=== PATIENT | female | born 1950 | race African-American/Black ===

== ENCOUNTER 2017-07-09 16:42 | Inpatient (IN) | payer MEDICARE, MEDICAID ==
[~2017-07-09] VITALS: Ht 162.6 cm; Wt 46.3 kg
[~2017-07-09 16:42] MED LIST: ALBU2.5V13 NEB; AMLO10TA80 PO; BECL8.7A6 INH; CHOL400T15 MT; DOCU-150 PO; FERR-43 PO; GABA-531 PO; IOHEXOL-350 100 ML BOTTLE ONE; OMEP20TA2 PO; SODIUM CHLORIDE 0.9% 10ML VIAL ONE; TRAM50TA3 PO; TURDOZA INH
[2017-07-09 19:31] LABS: BASOPHILS % 1.3 % (0.0-2.0); EOSINOPHILS % 3.2 % (0.0-5.0); HEMATOCRIT. 38.4 % (36.0-48.0); LYMPHOCYTES % 25.8 % (20.0-50.0); MEAN CORPUSCULAR HEMOGLOBIN 29.9 pg (28.0-32.0); MEAN CORPUSCULAR VOLUME 88.3 fL (81.0-99.0); MEAN PLATELET VOLUME 9.7 fl (7.4-10.4); MONOCYTES % 11.5 % (2.0-8.0); NEUTROPHILS % 58.2 % (40.0-76.0); PLATELET 126 x1000/uL (130-400); RED BLOOD CELL COUNT 4.35 mill/uL (4.2-5.4); RED CELL DISTRIBUTION WIDTH 14.1 % (11.6-14.6)
[2017-07-09 19:35] LABS: CHLORIDE 103 mEq/L (98-107)
[2017-07-09 19:38] LABS: INR 1.3; PARTIAL THROMBOPLASTIN TIME 29.6 sec (23.4-31.0); PROTHROMBIN TIME 13.8 sec (9.4-11.6)
[2017-07-09 19:41] LABS: CARBON DIOXIDE 33 mEq/L (21-32)
[2017-07-09 20:15] LABS: CLARITY URINE CLEAR (CLEAR); COLOR URINE YELLOW (YELLOW); GLUCOSE URINE NEGATIVE (NEGATIVE); KETONES URINE NEGATIVE (NEGATIVE); LEUKOCYTE ESTERASE URINE NEGATIVE (NEGATIVE); NITRITE URINE NEGATIVE (NEGATIVE); OCCULT BLOOD URINE 1+ (NEGATIVE); PH URINE 7.5 (4.5-8.0); PROTEIN URINE NEGATIVE (NEGATIVE); SPECIFIC GRAVITY URINE 1.008 (1.005-1.030); UROBILINOGEN URINE 0.2 E.U./dL (0.2-1.0)
[2017-07-09 20:28] LABS: *AMPHETAMINES SCREEN URINE NEGATIVE (NEGATIVE); *BARBITURATES SCREEN URINE NEGATIVE (NEGATIVE); *BENZODIAZEPINES SCREEN URINE NEGATIVE (NEGATIVE); *COCAINE SCREEN URINE NEGATIVE (NEGATIVE); CANNABINOID URINE SCREEN NEGATIVE (NEGATIVE); METHADONE URINE SCREEN NEGATIVE (NEGATIVE); OPIATES URINE SCREEN NEGATIVE (NEGATIVE); PHENCYCLIDINE URINE SCREEN NEGATIVE (NEGATIVE)
[2017-07-09] MEDS ORDERED: KETOROLAC 15MG/ML VIAL IV ONE (22:45)
[2017-07-09] MEDS: SODIUM CHLORIDE 0.9% 1,000 ML IV SCH (23:43)
[2017-07-10] MEDS ORDERED: GABAPENTIN 300MG CAPSULE PO SCH (01:30)
[2017-07-10] MEDS: SODIUM CHLORIDE 0.9% 1,000 ML IV SCH (02:23)
[2017-07-10] MEDS ORDERED: CLONIDINE 0.1MG TABLET PO PRN (04:30)
[2017-07-10] MEDS ORDERED: ONDANSETRON HCL 4MG/2ML VIAL IV PRN (04:30)
[2017-07-10 05:10] VITALS: BP 164/99
[2017-07-10] MEDS: MORPHINE SULFATE 4 MG/ML CPJ (NOT FOR IM USE) IV PRN ×4 (06:30→21:48)
[2017-07-10] MEDS ORDERED: ALBUTEROL (0.083%) 2.5MG/3ML NEB INH PRN (07:15)
[2017-07-10] MEDS: IPRATROPIUM/ALBUTEROL 0.5-3(2.5)MG/3ML NEB INH SCH ×3 (07:57→20:58)
[2017-07-10 08:23] VITALS: BP 143/84
[2017-07-10] MEDS ORDERED: FERROUS SULFATE 325MG TABLET PO SCH (09:00)
[2017-07-10] MEDS ORDERED: CHOLECALCIFEROL MT SCH (09:00)
[2017-07-10] MEDS: GABAPENTIN 300MG CAPSULE PO SCH ×3 (09:12→18:32)
[2017-07-10] MEDS: DOCUSATE SODIUM 100MG CAPSULE PO SCH (09:12)
[2017-07-10] MEDS: CHOLECALCIFEROL (D3) 1000 UNIT TABLET PO SCH (09:13)
[2017-07-10] MEDS: AMLODIPINE 10MG TABLET PO SCH (09:14)
[2017-07-10] MEDS ORDERED: INFLUENZA VIRUS VACCINE 0.5ML SYR IM ONE (09:30)
[2017-07-10] MEDS ORDERED: PNEUMOCOCCAL 23-VAL P-SAC VAC 0.5 ML IM ONE (09:30)
[2017-07-10] MEDS: FERROUS SULFATE 325MG TABLET PO SCH ×3 (10:28→18:32)
[2017-07-10] MEDS: ENOXAPARIN 40MG/0.4ML SYR SUBCUT SCH (10:36)
[2017-07-10] MEDS ORDERED: POTASSIUM CHLORIDE 20MEQ TABLET SR PO SCH (10:45)
[2017-07-10 10:59] LABS: LDL CHOLESTEROL 104 mg/dL (5-100)
[2017-07-10 11:08] LABS: HDL CHOLESTEROL 92 mg/dL (40-59); TROPONIN I < 0.02 ng/mL (0.00-0.04)
[2017-07-10 11:57] VITALS: BP 143/82
[2017-07-10 14:48] LABS: CREATINE KINASE 91 IU/L (26-192); CREATINE KINASE MB FRACTION 4.5 ng/mL (0.5-3.6); TROPONIN I < 0.02 ng/mL (0.00-0.04)
[2017-07-10 20:40] VITALS: BP 118/83
[2017-07-11] VITALS (7 sets, daily range): BP systolic 118–138; BP diastolic 68–89
[2017-07-11] MEDS: IPRATROPIUM/ALBUTEROL 0.5-3(2.5)MG/3ML NEB INH SCH ×4 (02:27→20:37)
[2017-07-11 06:38] LABS: HEMATOCRIT. 37.3 % (36.0-48.0); HEMOGLOBIN. 12.5 g/dL (12.0-16.0); MEAN CORPUSCULAR HEMOGLOBIN 29.8 pg (28.0-32.0); MEAN CORPUSCULAR VOLUME 89.2 fL (81.0-99.0); MEAN PLATELET VOLUME 10.9 fl (7.4-10.4); PLATELET 123 x1000/uL (130-400); RED BLOOD CELL COUNT 4.18 mill/uL (4.2-5.4)
[2017-07-11 07:25] LABS: CARBON DIOXIDE 30 mEq/L (21-32); CHLORIDE 103 mEq/L (98-107); CREATINE KINASE 75 IU/L (26-192)
[2017-07-11 07:30] LABS: CREATINE KINASE MB FRACTION 2.9 ng/mL (0.5-3.6)
[2017-07-11] MEDS: MORPHINE SULFATE 4 MG/ML CPJ (NOT FOR IM USE) IV PRN ×3 (08:13→20:07)
[2017-07-11] MEDS: GABAPENTIN 300MG CAPSULE PO SCH ×3 (08:33→17:42)
[2017-07-11] MEDS: FERROUS SULFATE 325MG TABLET PO SCH ×3 (08:33→17:42)
[2017-07-11] MEDS: CHOLECALCIFEROL (D3) 1000 UNIT TABLET PO SCH (08:34)
[2017-07-11] MEDS: AMLODIPINE 10MG TABLET PO SCH (08:34)
[2017-07-11] MEDS: DOCUSATE SODIUM 100MG CAPSULE PO SCH (08:36)
[2017-07-11] MEDS: ENOXAPARIN 40MG/0.4ML SYR SUBCUT SCH (08:40)
[2017-07-11] MEDS: ACETAMINOPHEN 325MG TABLET PO PRN ×2 (08:44→15:25)
[2017-07-11] MEDS ORDERED: REGADENOSON 0.4 MG/5 ML IV ONE ×2 (11:15→12:53)
[2017-07-11 13:24] LABS: PLATELET ESTIMATE SLIGHTLY DECREASED
[2017-07-12] VITALS: BP 125/74
[2017-07-12] MEDS: MORPHINE SULFATE 4 MG/ML CPJ (NOT FOR IM USE) IV PRN ×2 (03:38→10:00)
[2017-07-12 04:00] VITALS: BP 123/76
[2017-07-12 07:49] VITALS: BP 132/84
[2017-07-12 07:56] LABS: HEMATOCRIT. 37.2 % (36.0-48.0); HEMOGLOBIN. 12.3 g/dL (12.0-16.0); MEAN CORPUSCULAR HEMOGLOBIN 29.5 pg (28.0-32.0); MEAN CORPUSCULAR VOLUME 89.1 fL (81.0-99.0); MEAN PLATELET VOLUME 10.5 fl (7.4-10.4); PLATELET 107 x1000/uL (130-400); RED BLOOD CELL COUNT 4.18 mill/uL (4.2-5.4); RED CELL DISTRIBUTION WIDTH 14.1 % (11.6-14.6)
[2017-07-12 07:59] LABS: CARBON DIOXIDE 34 mEq/L (21-32); CHLORIDE 102 mEq/L (98-107)
[2017-07-12] MEDS: DOCUSATE SODIUM 100MG CAPSULE PO SCH (09:00)
[2017-07-12] MEDS: IPRATROPIUM/ALBUTEROL 0.5-3(2.5)MG/3ML NEB INH SCH (09:09)
[2017-07-12] MEDS: GABAPENTIN 300MG CAPSULE PO SCH ×2 (09:53→13:41)
[2017-07-12] MEDS: FERROUS SULFATE 325MG TABLET PO SCH ×2 (09:53→13:41)
[2017-07-12] MEDS: CHOLECALCIFEROL (D3) 1000 UNIT TABLET PO SCH (09:53)
[2017-07-12] MEDS: AMLODIPINE 10MG TABLET PO SCH (09:58)
[2017-07-12] MEDS: ENOXAPARIN 40MG/0.4ML SYR SUBCUT SCH (09:58)
[2017-07-12 12:00] VITALS: BP 123/91
[2017-07-12 13:03] VITALS: BP 126/80
[2017-07-12 13:32] LABS: PLATELET ESTIMATE SLIGHTLY DECREASED
== END 2017-07-12 15:40 | disposition home or self-care (01) | DRG 140 ==
LOC: ER 19:47 → 6WST 23:17 → ENRESERV 07-10 02:30
PROVIDERS: ADMIT Internal Medicine; ATTEND Internal Medicine
DX: J44.1 Chronic obstructive pulmonary disease with (acute) exacerbation (principal); J96.20 Acute and chronic respiratory failure, unspecified whether with hypoxia or hypercapnia; D69.6 Thrombocytopenia, unspecified; K74.60 Unspecified cirrhosis of liver; K25.9 Gastric ulcer, unspecified as acute or chronic, without hemorrhage or perforation; M94.0 Chondrocostal junction syndrome [Tietze]; R07.1 Chest pain on breathing; Z99.81 Dependence on supplemental oxygen; E87.6 Hypokalemia; I10 Essential (primary) hypertension; Z79.899 Other long term (current) drug therapy; Z83.3 Family history of diabetes mellitus; Z87.11 Personal history of peptic ulcer disease; Z87.891 Personal history of nicotine dependence; Z98.51 Tubal ligation status; K72.90 Hepatic failure, unspecified without coma; Z82.49 Family history of ischemic heart disease and other diseases of the circulatory system; B19.20 Unspecified viral hepatitis C without hepatic coma
CPT/HCPCS: 36415; 71010; 71275; 78452; 80048; 80053; 80061; 80305; 81001; 82550; 82553; 83880; 84443; 84484; 85025; 85610; 85730; 87040; 87086; 90686; 90732; 93005; 93017; 93306; 93970; 94640; 96361; 96374; 97116; 97162; 99285; A4216; A9500; J1650; J1885; J2270; J2785; J7030; J7611; J7620; Q9967

== ENCOUNTER 2017-08-03 18:46 | Emergency (ER) | payer MEDICARE, MEDICAID ==
[~2017-08-03] VITALS: Ht 162.6 cm; Wt 47.0 kg
[~2017-08-03 18:46] MED LIST changes: -IOHEXOL-350 100 ML BOTTLE ONE; -SODIUM CHLORIDE 0.9% 10ML VIAL ONE
[2017-08-03] MEDS ORDERED: TRAMADOL 50MG TABLET PO ONE (19:45)
[2017-08-03 21:15] VITALS: BP 125/71
== END 2017-08-03 21:15 | disposition home or self-care (01) ==
LOC: ER 20:45
DX: M25.532 Pain in left wrist (principal); R07.9 Chest pain, unspecified; J44.9 Chronic obstructive pulmonary disease, unspecified; I10 Essential (primary) hypertension
CPT/HCPCS: 29125; 73110; 99284

== ENCOUNTER → 2017-09-13 | Outpatient (CLI) | payer MEDICARE, MEDICAID | END | disposition home or self-care (01) | LOC: US 11:15 | PROVIDERS: ATTEND Internal Medicine Gastroenterology | DX: K82.8 Other specified diseases of gallbladder (principal); N28.1 Cyst of kidney, acquired; B18.2 Chronic viral hepatitis C | CPT/HCPCS: 76700 ==

== ENCOUNTER → 2018-03-15 | Outpatient (CLI) | payer MEDICARE, MEDICAID | END | disposition home or self-care (01) | LOC: US 10:25 | PROVIDERS: ATTEND Internal Medicine Gastroenterology | DX: N28.1 Cyst of kidney, acquired (principal); J47.9 Bronchiectasis, uncomplicated; Z87.891 Personal history of nicotine dependence | CPT/HCPCS: 71250; 76700 ==

== ENCOUNTER → 2018-11-15 | Outpatient (CLI) | payer MEDICARE, MEDICAID ==
[~2018-11-15] MED LIST changes: +ACYC400T5 PO; +ASPI-1159 PO; +BARIUM SULFATE 450ML ORAL SUSP ONE; +BETH25TA PO; +IOHEXOL-300 100 ML BOTTLE ONE; +IOHEXOL-350 100 ML BOTTLE ONE; +P20 MT; +PANT40TA4 PO; +TERA2CAP4 PO
== END | disposition home or self-care (01) ==
LOC: CT 10:15
PROVIDERS: ATTEND Internal Medicine Gastroenterology
DX: J43.9 Emphysema, unspecified (principal); K74.60 Unspecified cirrhosis of liver; B18.2 Chronic viral hepatitis C; N20.0 Calculus of kidney
CPT/HCPCS: 74177; Q9967

== ENCOUNTER 2018-12-23 19:58 | Emergency (ER) | payer MEDICARE, MEDICAID ==
[~2018-12-23] VITALS: Ht 162.6 cm; Wt 54.0 kg
[~2018-12-23 19:58] MED LIST changes: -ACYC400T5 PO; -ASPI-1159 PO; -BARIUM SULFATE 450ML ORAL SUSP ONE; -BETH25TA PO; -IOHEXOL-300 100 ML BOTTLE ONE; -IOHEXOL-350 100 ML BOTTLE ONE; -P20 MT; -PANT40TA4 PO; -TERA2CAP4 PO
[2018-12-23] MEDS ORDERED: HYDROCODONE/ACETAMINOPHEN 5/325MG TABLET PO STA (21:15)
[2018-12-23] MEDS ORDERED: ACYCLOVIR 400 MG TABLET PO ONE (21:15)
[2018-12-23 21:44] LABS: HEMATOCRIT. 32.5 % (36.0-48.0); HEMOGLOBIN. 10.5 g/dL (12.0-16.0); MEAN CORPUSCULAR HEMOGLOBIN 28.7 pg (28.0-32.0); MEAN CORPUSCULAR VOLUME 88.7 fL (81.0-99.0); PLATELET 145 x1000/uL (130-400); RED BLOOD CELL COUNT 3.66 mill/uL (4.2-5.4)
[2018-12-23 21:53] LABS: CHLORIDE 95 mEq/L (98-107)
[2018-12-23] MEDS ORDERED: ONDANSETRON HCL 4MG/2ML INJ ONE (21:59)
[2018-12-23 22:03] LABS: PLATELET ESTIMATE NORMAL
[2018-12-23] MEDS ORDERED: MORPHINE SULFATE 4 MG/ML CPJ (NOT FOR IM USE) IV ONE (23:00)
[2018-12-24] MEDS ORDERED: GABAPENTIN 300MG CAPSULE PO ONE
[2018-12-24] MEDS ORDERED: IOHEXOL-300 100 ML BOTTLE ONE (00:08)
[2018-12-24 02:15] VITALS: BP 134/79
== END 2018-12-24 02:30 | disposition home or self-care (01) ==
LOC: ER 20:21
DX: B02.9 Zoster without complications (principal); R07.89 Other chest pain; J44.9 Chronic obstructive pulmonary disease, unspecified; Z79.899 Other long term (current) drug therapy; Z87.891 Personal history of nicotine dependence
CPT/HCPCS: 36415; 71045; 71260; 80053; 85025; 93005; 96374; 99284; J2270; J2405; Q9967

== ENCOUNTER 2018-12-27 13:33 | Inpatient (IN) | payer MEDICARE, MEDICAID ==
[~2018-12-27] VITALS: Ht 157.5 cm; Wt 49.9 kg
[2018-12-27] MEDS ORDERED: KETOROLAC 30MG/ML VIAL IV STA (14:25)
[2018-12-27] MEDS ORDERED: MORPHINE SULFATE 4 MG/ML CPJ (NOT FOR IM USE) IV STA (14:25)
[2018-12-27] MEDS ORDERED: ONDANSETRON HCL 4MG/2ML INJ IV STA (14:25)
[2018-12-27] MEDS ORDERED: VANCOMYCIN 1 G PREMIX 200 ML IV ONE (14:30)
[2018-12-27] MEDS ORDERED: PIPERACILLIN/TAZ 3.375G PREMIX 50 ML IV ONE (14:30)
[2018-12-27] MEDS ORDERED: SODIUM CHLORIDE 0.9% 1000ML BAG (SEPSIS BOLUS) IV ONE (14:30)
[2018-12-27] MEDS ORDERED: ACYCLOVIR INJ 500 MG in DEXT 5% WATER 100 ML IV SCH (14:30)
[2018-12-27] MEDS ORDERED: HYDROCORTISONE SOD SUCCINATE 100 MG/2 ML VIAL IV ONE (14:30)
[2018-12-27 14:47] LABS: HEMATOCRIT. 32.5 % (36.0-48.0); HEMOGLOBIN. 10.5 g/dL (12.0-16.0); MEAN CORPUSCULAR HEMOGLOBIN 28.4 pg (28.0-32.0); MEAN CORPUSCULAR VOLUME 87.7 fL (81.0-99.0); MEAN PLATELET VOLUME 10.2 fl (7.4-10.4); PLATELET 147 x1000/uL (130-400); RED CELL DISTRIBUTION WIDTH 14.5 % (11.6-14.6)
[2018-12-27 14:50] LABS: INR 1.3; PROTHROMBIN TIME 12.8 sec (9.1-11.1)
[2018-12-27 14:53] LABS: CHLORIDE 88 mEq/L (98-107)
[2018-12-27 14:58] LABS: ETHANOL BLOOD < 10 mg/dL
[2018-12-27 16:10] LABS: PLATELET ESTIMATE NORMAL
[2018-12-27] MEDS ORDERED: NOREPINEPHRINE 4 MG in DEXT 5% WATER 246 ML IV ONE (17:15)
[2018-12-27] MEDS ORDERED: MORPHINE SULFATE 4 MG/ML CPJ (NOT FOR IM USE) IV ONE (17:15)
[2018-12-27] MEDS ORDERED: ONDANSETRON HCL 4MG/2ML INJ IV ONE (17:15)
[2018-12-27] MEDS ORDERED: NOREPINEPHRINE IV ONE (17:27)
[2018-12-27] MEDS ORDERED: NOREPINEPHRINE 4MG/250ML PMX 250 ML IV ONE (17:27)
[2018-12-27] MEDS ORDERED: NOREPINEPHRINE 4MG/250ML PMX 250 ML IV SCH ×4 (17:30)
[2018-12-27 19:32] LABS: CLARITY URINE TURBID (CLEAR); COLOR URINE DARK YELLOW (YELLOW); KETONES URINE TRACE (NEGATIVE); LEUKOCYTE ESTERASE URINE 2+ (NEGATIVE); NITRITE URINE POSITIVE (NEGATIVE); OCCULT BLOOD URINE 3+ (NEGATIVE); PROTEIN URINE 3+ (NEGATIVE); SPECIFIC GRAVITY URINE 1.037 (1.005-1.030)
[2018-12-27] MEDS ORDERED: GUAIFENESIN 200MG/10ML SUGAR FREE UDC PO PRN (19:45)
[2018-12-27] MEDS ORDERED: MORPHINE SULFATE 4 MG/ML CPJ (NOT FOR IM USE) IV PRN (19:45)
[2018-12-27] MEDS ORDERED: DOCUSATE SODIUM 100MG CAPSULE PO PRN (19:45)
[2018-12-27] MEDS ORDERED: CLONIDINE 0.1MG TABLET PO PRN (19:45)
[2018-12-27] MEDS ORDERED: LORAZEPAM 2MG/ML CPJ IV PRN (19:45)
[2018-12-27] MEDS ORDERED: NA PHOS,M-B/NA PHOS,DI-BA ENEMA 118ML PR PRN (19:45)
[2018-12-27] MEDS ORDERED: HYDROCODONE/ACETAMINOPHEN 10/325MG TABLET PO PRN (19:45)
[2018-12-27] MEDS ORDERED: MAGNESIUM/ALUMINUM HYDROXIDE/SIMETHICONE 30ML UDC PO PRN (19:45)
[2018-12-27 19:46] LABS: *AMPHETAMINES SCREEN URINE NEGATIVE (NEGATIVE); *BARBITURATES SCREEN URINE NEGATIVE (NEGATIVE); *BENZODIAZEPINES SCREEN URINE NEGATIVE (NEGATIVE); *COCAINE SCREEN URINE NEGATIVE (NEGATIVE); METHADONE URINE SCREEN NEGATIVE (NEGATIVE); OPIATES URINE SCREEN PRESUMTIVE POSITIVE (NEGATIVE)
[2018-12-27 19:47] LABS: CANNABINOID URINE SCREEN NEGATIVE (NEGATIVE); PHENCYCLIDINE URINE SCREEN NEGATIVE (NEGATIVE)
[2018-12-27] MEDS ORDERED: SODIUM CHLORIDE 0.45% 1,000 ML IV SCH (20:09)
[2018-12-27] MEDS: ONDANSETRON HCL 4MG/2ML INJ IV PRN (20:24)
[2018-12-27] MEDS ORDERED: SUCCINYLCHOLINE CHLORIDE 200MG/10ML IV ONE ×2 (21:10→22:15)
[2018-12-27] MEDS ORDERED: ETOMIDATE 2MG/ML 10ML VIAL IV ONE ×2 (21:10→22:15)
[2018-12-27] MEDS: IPRATROPIUM/ALBUTEROL 0.5-3(2.5)MG/3ML NEB INH PRN (21:45)
[2018-12-27] MEDS ORDERED: PROPOFOL 10MG/ML 100ML 100 ML IV ONE (22:15)
[2018-12-27] MEDS ORDERED: PANTOPRAZOLE 80 MG in SODIUM CHLORIDE 0.9% 100 ML IV SCH ×2 (22:30→23:45)
[2018-12-27] MEDS ORDERED: OCTREOTIDE ACETATE 50 MCG/ML 1ML IV ONE (22:30)
[2018-12-27] MEDS ORDERED: PANTOPRAZOLE SODIUM 40 MG/VIAL IV ONE (22:30)
[2018-12-27 23:13] LABS: BG BASE EXCESS 2.6 mmol/L (-2.0-2.0); BG CARBOXYHEMOGLOBIN 0.1 % (0.5-1.5); BG DEOXYHEMOGLOBIN 10.2 % (0.0-5.0); BG FRACTION INSPIRED OXYGEN 100; BG HCO3 ACT 32.3 mmol/L (22.0-26.0); BG METHEMOGLOBIN 0.3 % (0.0-1.5); BG OXYGEN SATURATION 89.8 % (92.0-98.5); BG OXYHEMOGLOBIN 89.4 % (94.0-97.0); BG PCO2 81.2 mmHg (35.0-45.0); BG PH 7.217 (7.350-7.450); BG PO2 65.4 mmHg (75.0-100.0); BG SAMPLE SITE RIGHT RADIAL; BG TIDAL VOLUME(mL) 500 mL; BG TOTAL HEMOGLOBIN 11.3 g/dL (12.0-18.0); BG VENT MODE VENT - A/C; BG VENT RATE 14 set
[2018-12-28] VITALS (97 sets, daily range): BP systolic 47–145; BP diastolic 34–84
[2018-12-28 00:10] LABS: HEMATOCRIT. 33.4 % (36.0-48.0); HEMOGLOBIN. 10.7 g/dL (12.0-16.0); MEAN CORPUSCULAR HEMOGLOBIN 28.4 pg (28.0-32.0); MEAN CORPUSCULAR VOLUME 88.3 fL (81.0-99.0); MEAN PLATELET VOLUME 9.1 fl (7.4-10.4); PLATELET 142 x1000/uL (130-400); RED BLOOD CELL COUNT 3.79 mill/uL (4.2-5.4); RED CELL DISTRIBUTION WIDTH 14.3 % (11.6-14.6)
[2018-12-28 00:14] LABS: CHLORIDE 92 mEq/L (98-107)
[2018-12-28] MEDS ORDERED: PROPOFOL 10MG/ML 100ML 100 ML IV PRN (01:15)
[2018-12-28] MEDS: ACYCLOVIR INJ 500 MG in DEXT 5% WATER 100 ML IV SCH ×2 (01:44→14:01)
[2018-12-28] MEDS: PHENYLEPHRINE 40 MG in DEXT 5% WATER 246 ML IV PRN ×5 (01:45→23:06)
[2018-12-28] MEDS: NOREPINEPHRINE 16 MG in DEXT 5% WATER 234 ML IV PRN ×3 (01:45→22:54)
[2018-12-28 05:16] LABS: BASOPHILS % 0.5 % (0.0-2.0); EOSINOPHILS % 0.1 % (0.0-5.0); HEMATOCRIT. 33.9 % (36.0-48.0); HEMOGLOBIN. 10.9 g/dL (12.0-16.0); LYMPHOCYTES % 7.3 % (20.0-50.0); MEAN CORPUSCULAR HEMOGLOBIN 28.5 pg (28.0-32.0); MEAN CORPUSCULAR VOLUME 88.9 fL (81.0-99.0); MEAN PLATELET VOLUME 10.6 fl (7.4-10.4); MONOCYTES % 5.9 % (2.0-8.0); NEUTROPHILS % 86.2 % (40.0-76.0); PLATELET 135 x1000/uL (130-400); RED BLOOD CELL COUNT 3.81 mill/uL (4.2-5.4); RED CELL DISTRIBUTION WIDTH 14.4 % (11.6-14.6)
[2018-12-28 05:25] LABS: CHLORIDE 88 mEq/L (98-107)
[2018-12-28 05:43] LABS: LDL CHOLESTEROL 53 mg/dL (5-100)
[2018-12-28 05:44] LABS: HDL CHOLESTEROL 51 mg/dL (40-59)
[2018-12-28 05:45] LABS: T4 FREE 1.28 ng/dL (0.76-1.46)
[2018-12-28 07:38] LABS: PLATELET ESTIMATE NORMAL
[2018-12-28] MEDS: PANTOPRAZOLE SODIUM 40 MG/VIAL IV SCH ×2 (08:50→20:14)
[2018-12-28] MEDS ORDERED: ASPIRIN 81MG EC TABLET PO SCH (09:00)
[2018-12-28] MEDS ORDERED: ENOXAPARIN 40MG/0.4ML SYR SUBCUT SCH (09:00)
[2018-12-28] MEDS ORDERED: ENOXAPARIN 30MG/0.3ML SYR SUBCUT SCH (09:00)
[2018-12-28 09:08] LABS: BG BASE EXCESS 0.1 mmol/L (-2.0-2.0); BG CARBOXYHEMOGLOBIN 0.2 % (0.5-1.5); BG FRACTION INSPIRED OXYGEN 100; BG HCO3 ACT 24.1 mmol/L (22.0-26.0); BG METHEMOGLOBIN 0.5 % (0.0-1.5); BG OXYHEMOGLOBIN 99.3 % (94.0-97.0); BG PCO2 36.6 mmHg (35.0-45.0); BG PH 7.436 (7.350-7.450); BG PO2 > 602.7 mmHg (75.0-100.0); BG SAMPLE SITE RIGHT BRACHIAL; BG TIDAL VOLUME(mL) 500 mL; BG TOTAL HEMOGLOBIN 11.9 g/dL (12.0-18.0); BG VENT MODE VENT - A/C; BG VENT RATE 18 set
[2018-12-28] MEDS: SODIUM CHLORIDE 0.9% 1,000 ML IV SCH (10:57)
[2018-12-28] MEDS: IPRATROPIUM/ALBUTEROL 0.5-3(2.5)MG/3ML NEB HHN SCH ×3 (11:35→21:11)
[2018-12-28] MEDS: FENTANYL CITRATE/PF 500 MCG in SODIUM CHLORIDE 0.9% 40 ML IV PRN (12:37)
[2018-12-28] MEDS: MIDAZOLAM HCL 50 MG in DEXTROSE 5% WATER 40 ML IV PRN (12:38)
[2018-12-28] MEDS: PIPERACILLIN/TAZ 3.375G PREMIX 50 ML IV SCH ×3 (13:49→23:06)
[2018-12-28] MEDS: ACETYLCYSTEINE 100MG/ML 10% VIAL 4ML INH SCH (15:09)
[2018-12-28] MEDS: VANCOMYCIN 750 MG PREMIX 150 ML IV SCH (16:07)
[2018-12-29] VITALS (99 sets, daily range): BP systolic 62–124; BP diastolic 42–83
[2018-12-29] MEDS: ACETYLCYSTEINE 100MG/ML 10% VIAL 4ML INH SCH ×3 (00:50→15:14)
[2018-12-29] MEDS: IPRATROPIUM/ALBUTEROL 0.5-3(2.5)MG/3ML NEB HHN SCH ×6 (00:57→20:28)
[2018-12-29] MEDS: ACETAMINOPHEN 325MG TABLET PO PRN ×2 (03:13→21:24)
[2018-12-29] MEDS: FENTANYL CITRATE/PF 500 MCG in SODIUM CHLORIDE 0.9% 40 ML IV PRN ×2 (03:13→18:22)
[2018-12-29] MEDS: ACYCLOVIR INJ 500 MG in DEXT 5% WATER 100 ML IV SCH ×2 (03:28→20:33)
[2018-12-29] MEDS: PHENYLEPHRINE 40 MG in DEXT 5% WATER 246 ML IV PRN ×2 (04:07→08:44)
[2018-12-29] MEDS: MIDAZOLAM HCL 50 MG in DEXTROSE 5% WATER 40 ML IV PRN (04:43)
[2018-12-29 05:44] LABS: BASOPHILS % 0.3 % (0.0-2.0); EOSINOPHILS % 4.4 % (0.0-5.0); HEMATOCRIT. 30.5 % (36.0-48.0); HEMOGLOBIN. 10.1 g/dL (12.0-16.0); LYMPHOCYTES % 14.4 % (20.0-50.0); MEAN CORPUSCULAR HEMOGLOBIN 28.5 pg (28.0-32.0); MEAN CORPUSCULAR VOLUME 85.9 fL (81.0-99.0); MEAN PLATELET VOLUME 11.6 fl (7.4-10.4); MONOCYTES % 7.4 % (2.0-8.0); NEUTROPHILS % 73.5 % (40.0-76.0); PLATELET 86 x1000/uL (130-400); RED BLOOD CELL COUNT 3.55 mill/uL (4.2-5.4); RED CELL DISTRIBUTION WIDTH 14.5 % (11.6-14.6)
[2018-12-29] MEDS: PIPERACILLIN/TAZ 3.375G PREMIX 50 ML IV SCH ×4 (05:53→23:34)
[2018-12-29 06:07] LABS: CHLORIDE 87 mEq/L (98-107)
[2018-12-29 06:21] LABS: CREATINE KINASE 32 IU/L (26-192)
[2018-12-29 06:32] LABS: CREATINE KINASE MB FRACTION 2.1 ng/mL (0.5-3.6)
[2018-12-29] MEDS: PANTOPRAZOLE SODIUM 40 MG/VIAL IV SCH ×2 (08:44→20:33)
[2018-12-29 09:20] LABS: BG BASE EXCESS 1.6 mmol/L (-2.0-2.0); BG CARBOXYHEMOGLOBIN 0.5 % (0.5-1.5); BG DEOXYHEMOGLOBIN 8.1 % (0.0-5.0); BG FRACTION INSPIRED OXYGEN 35; BG HCO3 ACT 26.6 mmol/L (22.0-26.0); BG METHEMOGLOBIN 0.3 % (0.0-1.5); BG OXYGEN SATURATION 91.8 % (92.0-98.5); BG OXYHEMOGLOBIN 91.1 % (94.0-97.0); BG PCO2 43.3 mmHg (35.0-45.0); BG PH 7.406 (7.350-7.450); BG PO2 65.8 mmHg (75.0-100.0); BG SAMPLE SITE RIGHT BRACHIAL; BG TIDAL VOLUME(mL) 450 mL; BG TOTAL HEMOGLOBIN 11.5 g/dL (12.0-18.0); BG VENT MODE VENT - A/C; BG VENT RATE 16 set
[2018-12-29] MEDS ORDERED: SODIUM CHLORIDE 0.9% 500 ML IV NR (10:30)
[2018-12-29] MEDS: NOREPINEPHRINE 16 MG in DEXT 5% WATER 234 ML IV PRN (10:54)
[2018-12-29] MEDS ORDERED: PHENYLEPHRINE 80 MG in DEXT 5% WATER 492 ML IV PRN (13:15)
[2018-12-29] MEDS ORDERED: NOREPINEPHRINE 32 MG in DEXT 5% WATER 468 ML IV PRN (13:15)
[2018-12-29] MEDS: PHENYLEPHRINE 80 MG in DEXT 5% WATER 492 ML IV PRN ×2 (13:42→22:48)
[2018-12-29] MEDS: VANCOMYCIN 750 MG PREMIX 150 ML IV SCH (14:58)
[2018-12-29] MEDS: SODIUM CHLORIDE 0.9% 1,000 ML IV SCH (14:58)
[2018-12-30] VITALS (96 sets, daily range): BP systolic 76–147; BP diastolic 40–101
[2018-12-30] MEDS: IPRATROPIUM/ALBUTEROL 0.5-3(2.5)MG/3ML NEB HHN SCH ×6 (00:02→20:02)
[2018-12-30] MEDS: ACETYLCYSTEINE 100MG/ML 10% VIAL 4ML INH SCH ×3 (00:02→16:11)
[2018-12-30] MEDS: PIPERACILLIN/TAZ 3.375G PREMIX 50 ML IV SCH ×3 (05:08→18:52)
[2018-12-30 05:36] LABS: HEMATOCRIT. 29.9 % (36.0-48.0); HEMOGLOBIN. 9.8 g/dL (12.0-16.0); MEAN CORPUSCULAR HEMOGLOBIN 28.1 pg (28.0-32.0); MEAN PLATELET VOLUME 11.3 fl (7.4-10.4); PLATELET 88 x1000/uL (130-400); RED BLOOD CELL COUNT 3.48 mill/uL (4.2-5.4); RED CELL DISTRIBUTION WIDTH 15.1 % (11.6-14.6)
[2018-12-30] MEDS: DIPHENHYDRAMINE 50MG/ML VIAL IV PRN ×2 (07:53→18:52)
[2018-12-30] MEDS: MIDAZOLAM HCL 50 MG in DEXTROSE 5% WATER 40 ML IV PRN (07:55)
[2018-12-30] MEDS: FENTANYL CITRATE/PF 500 MCG in SODIUM CHLORIDE 0.9% 40 ML IV PRN ×2 (07:56→22:15)
[2018-12-30] MEDS: PANTOPRAZOLE SODIUM 40 MG/VIAL IV SCH ×2 (08:00→21:56)
[2018-12-30] MEDS ORDERED: KCL 20MEQ/100ML PREMIX 100 ML IV NR (08:30)
[2018-12-30 08:40] LABS: BG BASE EXCESS 1.9 mmol/L (-2.0-2.0); BG CARBOXYHEMOGLOBIN 0.3 % (0.5-1.5); BG DEOXYHEMOGLOBIN 3.8 % (0.0-5.0); BG FRACTION INSPIRED OXYGEN 40; BG METHEMOGLOBIN 0.3 % (0.0-1.5); BG OXYGEN SATURATION 96.2 % (92.0-98.5); BG OXYHEMOGLOBIN 95.6 % (94.0-97.0); BG PCO2 44.4 mmHg (35.0-45.0); BG PH 7.402 (7.350-7.450); BG PO2 84.4 mmHg (75.0-100.0); BG SAMPLE SITE RIGHT RADIAL; BG TIDAL VOLUME(mL) 450 mL; BG TOTAL HEMOGLOBIN 9.8 g/dL (12.0-18.0); BG VENT MODE VENT - A/C; BG VENT RATE 16 set
[2018-12-30 09:33] LABS: ATYPICAL LYMPHOCYTES 1; PLATELET ESTIMATE DECREASED
[2018-12-30] MEDS: PHENYLEPHRINE 80 MG in DEXT 5% WATER 492 ML IV PRN ×2 (09:52→18:51)
[2018-12-30] MEDS: SODIUM CHLORIDE 0.9% 1,000 ML IV SCH (10:06)
[2018-12-30] MEDS: VANCOMYCIN 1 G PREMIX 200 ML IV SCH (15:38)
[2018-12-30] MEDS: LACTULOSE 20G/30ML UDC PO SCH (18:51)
[2018-12-30] MEDS: MIDODRINE HCL 5MG TABLET PO SCH (18:52)
[2018-12-30] MEDS: ACYCLOVIR INJ 500 MG in DEXT 5% WATER 100 ML IV SCH (22:13)
[2018-12-30] MEDS: ACETAMINOPHEN 325MG TABLET PO PRN (22:13)
[2018-12-30] MEDS ORDERED: MIDAZOLAM HCL 100 MG in DEXT 5% WATER 80 ML IV PRN (22:15)
[2018-12-31] VITALS (83 sets, daily range): BP systolic 81–138; BP diastolic 48–87
[2018-12-31] MEDS: IPRATROPIUM/ALBUTEROL 0.5-3(2.5)MG/3ML NEB HHN SCH ×6 (00:11→20:12)
[2018-12-31] MEDS: ACETYLCYSTEINE 100MG/ML 10% VIAL 4ML INH SCH ×4 (00:11→15:39)
[2018-12-31] MEDS: PIPERACILLIN/TAZ 3.375G PREMIX 50 ML IV SCH ×4 (00:31→17:15)
[2018-12-31] MEDS: PHENYLEPHRINE 80 MG in DEXT 5% WATER 492 ML IV PRN ×3 (02:20→21:04)
[2018-12-31 05:02] LABS: BASOPHILS % 0.2 % (0.0-2.0); EOSINOPHILS % 2.1 % (0.0-5.0); HEMATOCRIT. 27.2 % (36.0-48.0); HEMOGLOBIN. 8.9 g/dL (12.0-16.0); MEAN CORPUSCULAR VOLUME 85.6 fL (81.0-99.0); MEAN PLATELET VOLUME 10.6 fl (7.4-10.4); MONOCYTES % 8.7 % (2.0-8.0); PLATELET 99 x1000/uL (130-400); RED BLOOD CELL COUNT 3.18 mill/uL (4.2-5.4); RED CELL DISTRIBUTION WIDTH 15.3 % (11.6-14.6)
[2018-12-31 05:37] LABS: PHOSPHORUS 3.1 mg/dL (2.5-4.9)
[2018-12-31 07:14] LABS: BG BASE EXCESS 2.2 mmol/L (-2.0-2.0); BG CARBOXYHEMOGLOBIN 0.3 % (0.5-1.5); BG DEOXYHEMOGLOBIN 3.9 % (0.0-5.0); BG HCO3 ACT 27.6 mmol/L (22.0-26.0); BG METHEMOGLOBIN 0.3 % (0.0-1.5); BG OXYGEN SATURATION 96.1 % (92.0-98.5); BG OXYHEMOGLOBIN 95.5 % (94.0-97.0); BG PCO2 46.9 mmHg (35.0-45.0); BG PH 7.388 (7.350-7.450); BG PO2 86.3 mmHg (75.0-100.0); BG SAMPLE SITE RIGHT BRACHIAL; BG TIDAL VOLUME(mL) 450 mL; BG TOTAL HEMOGLOBIN 9.9 g/dL (12.0-18.0); BG VENT MODE VENT - A/C; BG VENT RATE 14 set
[2018-12-31] MEDS ORDERED: POTASSIUM CHLORIDE 20MEQ/PACKET PO SCH (08:30)
[2018-12-31] MEDS: LACTULOSE 20G/30ML UDC PO SCH (09:35)
[2018-12-31] MEDS: PANTOPRAZOLE SODIUM 40 MG/VIAL IV SCH ×2 (09:36→21:04)
[2018-12-31] MEDS: MIDODRINE HCL 5MG TABLET PO SCH ×3 (09:36→16:54)
[2018-12-31] MEDS: SODIUM CHLORIDE 0.9% 1,000 ML IV SCH (12:29)
[2018-12-31] MEDS ORDERED: KCL 20MEQ/100ML PREMIX 100 ML IV NR (15:00)
[2018-12-31 15:04] LABS: BG BASE EXCESS 1.1 mmol/L (-2.0-2.0); BG CARBOXYHEMOGLOBIN 0.1 % (0.5-1.5); BG CPAP (cmH2O) 0 cm(H2O); BG DEOXYHEMOGLOBIN 4.8 % (0.0-5.0); BG HCO3 ACT 26.5 mmol/L (22.0-26.0); BG METHEMOGLOBIN 0.1 % (0.0-1.5); BG OXYGEN SATURATION 95.2 % (92.0-98.5); BG PCO2 45.8 mmHg (35.0-45.0); BG PO2 76.7 mmHg (75.0-100.0); BG SAMPLE SITE RIGHT RADIAL; BG TOTAL HEMOGLOBIN 9.7 g/dL (12.0-18.0); BG VENT MODE VENT - CPAP
[2018-12-31] MEDS: VANCOMYCIN 1 G PREMIX 200 ML IV SCH (16:54)
[2018-12-31] MEDS: ACYCLOVIR INJ 500 MG in DEXT 5% WATER 100 ML IV SCH (21:04)
[2019-01-01] VITALS (79 sets, daily range): BP systolic 92–150; BP diastolic 57–100
[2019-01-01] MEDS: PIPERACILLIN/TAZ 3.375G PREMIX 50 ML IV SCH ×5 (00:10→23:41)
[2019-01-01] MEDS: IPRATROPIUM/ALBUTEROL 0.5-3(2.5)MG/3ML NEB HHN SCH ×6 (00:25→20:09)
[2019-01-01] MEDS: ACETYLCYSTEINE 100MG/ML 10% VIAL 4ML INH SCH ×3 (05:22→16:46)
[2019-01-01 05:58] LABS: HEMATOCRIT. 25.2 % (36.0-48.0); HEMOGLOBIN. 8.3 g/dL (12.0-16.0); MEAN CORPUSCULAR HEMOGLOBIN 28.2 pg (28.0-32.0); MEAN CORPUSCULAR VOLUME 85.5 fL (81.0-99.0); MEAN PLATELET VOLUME 10.4 fl (7.4-10.4); PLATELET 90 x1000/uL (130-400); RED BLOOD CELL COUNT 2.94 mill/uL (4.2-5.4); RED CELL DISTRIBUTION WIDTH 15.1 % (11.6-14.6)
[2019-01-01 06:03] LABS: CHLORIDE 100 mEq/L (98-107)
[2019-01-01 06:11] LABS: PHOSPHORUS 2.1 mg/dL (2.5-4.9)
[2019-01-01 07:12] LABS: HIV SCREEN 4G Non Reactive (Non Reactive)
[2019-01-01] MEDS ORDERED: LORAZEPAM 2MG/ML CPJ IV PRN (08:00)
[2019-01-01] MEDS ORDERED: POTASSIUM CHLORIDE INJ 40 MEQ in DEXT 5% WATER 250 ML IV SCH (08:00)
[2019-01-01] MEDS ORDERED: POTASSIUM PHOS,M-BASIC-D-BASIC 15 MMOL in DEXT 5% WATER 245 ML IV SCH (08:00)
[2019-01-01] MEDS: PANTOPRAZOLE SODIUM 40 MG/VIAL IV SCH ×2 (09:13→20:26)
[2019-01-01] MEDS: LACTULOSE 20G/30ML UDC PO SCH (09:13)
[2019-01-01] MEDS: MIDODRINE HCL 5MG TABLET PO SCH ×3 (09:14→17:55)
[2019-01-01 09:18] LABS: BG BASE EXCESS 5.1 mmol/L (-2.0-2.0); BG CARBOXYHEMOGLOBIN 0.3 % (0.5-1.5); BG DEOXYHEMOGLOBIN 4.2 % (0.0-5.0); BG FRACTION INSPIRED OXYGEN 40; BG HCO3 ACT 29.2 mmol/L (22.0-26.0); BG METHEMOGLOBIN 0.2 % (0.0-1.5); BG OXYGEN SATURATION 95.8 % (92.0-98.5); BG OXYHEMOGLOBIN 95.3 % (94.0-97.0); BG PCO2 40.9 mmHg (35.0-45.0); BG PH 7.471 (7.350-7.450); BG PO2 77.9 mmHg (75.0-100.0); BG PRESSURE SUPPORT 16; BG SAMPLE SITE RIGHT RADIAL; BG TIDAL VOLUME(mL) 450 mL; BG VENT MODE VENT - SIMV; BG VENT RATE 12 set
[2019-01-01] MEDS: HYDROMORPHONE HCL/PF 2MG/ML CPJ IV PRN ×2 (09:35→22:49)
[2019-01-01 10:06] LABS: PLATELET ESTIMATE DECREASED
[2019-01-01] MEDS: THIAMINE HCL 100 MG, FOLIC ACID 1 MG, MVI, ADULT NO.1 10 ML in SODIUM CHLORIDE 0.9% 1,0... IV SCH ×4 (13:35)
[2019-01-01] MEDS: VANCOMYCIN 1 G PREMIX 200 ML IV SCH (15:37)
[2019-01-01] MEDS: METOCLOPRAMIDE HCL 10MG/2ML VIAL IV SCH ×2 (17:55→23:40)
[2019-01-01] MEDS: ACYCLOVIR INJ 500 MG in DEXT 5% WATER 100 ML IV SCH (20:27)
[2019-01-01] MEDS ORDERED: KCL 20MEQ/100ML PREMIX 100 ML IV NR (21:00)
[2019-01-02] VITALS (79 sets, daily range): BP systolic 100–144; BP diastolic 58–90
[2019-01-02] MEDS: ACETYLCYSTEINE 100MG/ML 10% VIAL 4ML INH SCH ×3 (00:05→14:00)
[2019-01-02] MEDS: IPRATROPIUM/ALBUTEROL 0.5-3(2.5)MG/3ML NEB HHN SCH ×6 (00:05→20:40)
[2019-01-02 06:02] LABS: BASOPHILS % 0.2 % (0.0-2.0); EOSINOPHILS % 0.9 % (0.0-5.0); HEMATOCRIT. 26.7 % (36.0-48.0); HEMOGLOBIN. 8.7 g/dL (12.0-16.0); MEAN CORPUSCULAR HEMOGLOBIN 28.2 pg (28.0-32.0); MEAN CORPUSCULAR VOLUME 86.2 fL (81.0-99.0); MONOCYTES % 13.8 % (2.0-8.0); NEUTROPHILS % 74.1 % (40.0-76.0); PLATELET 145 x1000/uL (130-400); RED BLOOD CELL COUNT 3.09 mill/uL (4.2-5.4); RED CELL DISTRIBUTION WIDTH 15.3 % (11.6-14.6)
[2019-01-02] MEDS: METOCLOPRAMIDE HCL 10MG/2ML VIAL IV SCH ×3 (06:08→17:47)
[2019-01-02] MEDS: PIPERACILLIN/TAZ 3.375G PREMIX 50 ML IV SCH ×3 (06:08→17:47)
[2019-01-02 06:10] LABS: CHLORIDE 100 mEq/L (98-107)
[2019-01-02 08:03] LABS: BG BASE EXCESS 6.8 mmol/L (-2.0-2.0); BG CARBOXYHEMOGLOBIN 0.1 % (0.5-1.5); BG DEOXYHEMOGLOBIN 4.6 % (0.0-5.0); BG HCO3 ACT 30.9 mmol/L (22.0-26.0); BG METHEMOGLOBIN 0.3 % (0.0-1.5); BG OXYGEN SATURATION 95.4 % (92.0-98.5); BG PCO2 41.8 mmHg (35.0-45.0); BG PH 7.486 (7.350-7.450); BG PO2 74.7 mmHg (75.0-100.0); BG SAMPLE SITE RIGHT RADIAL; BG TIDAL VOLUME(mL) 450 mL; BG TOTAL HEMOGLOBIN 9.2 g/dL (12.0-18.0); BG VENT MODE VENT - SIMV; BG VENT RATE 8 set
[2019-01-02] MEDS ORDERED: POTASSIUM CHLORIDE 20MEQ/PACKET PO NR (08:15)
[2019-01-02] MEDS: LACTULOSE 20G/30ML UDC PO SCH (08:48)
[2019-01-02] MEDS: PANTOPRAZOLE SODIUM 40 MG/VIAL IV SCH ×2 (08:48→20:38)
[2019-01-02] MEDS: MIDODRINE HCL 5MG TABLET PO SCH ×3 (08:48→16:29)
[2019-01-02] MEDS ORDERED: MAGNESIUM 4 G PREMIX 100 ML IV SCH (09:00)
[2019-01-02] MEDS ORDERED: POTASSIUM CHLORIDE INJ 40 MEQ in DEXT 5% WATER 250 ML IV SCH (09:00)
[2019-01-02] MEDS: HYDROMORPHONE HCL/PF 2MG/ML CPJ IV PRN ×2 (14:22→22:28)
[2019-01-02] MEDS: VANCOMYCIN 1 G PREMIX 200 ML IV SCH (15:24)
[2019-01-02] MEDS: THIAMINE HCL 100 MG, FOLIC ACID 1 MG, MVI, ADULT NO.1 10 ML in SODIUM CHLORIDE 0.9% 1,0... IV SCH ×4 (15:24)
[2019-01-02] MEDS: ACYCLOVIR INJ 500 MG in DEXT 5% WATER 100 ML IV SCH (20:39)
[2019-01-02] MEDS: CLOTRIMAZOLE 1% CREAM 30GM TOP SCH (22:28)
[2019-01-03] VITALS (54 sets, daily range): BP systolic 98–178; BP diastolic 61–108
[2019-01-03] MEDS: IPRATROPIUM/ALBUTEROL 0.5-3(2.5)MG/3ML NEB HHN SCH ×3 (00:32→08:16)
[2019-01-03] MEDS: METOCLOPRAMIDE HCL 10MG/2ML VIAL IV SCH ×4 (01:10→17:50)
[2019-01-03] MEDS: ACETAMINOPHEN 325MG TABLET PO PRN (01:10)
[2019-01-03] MEDS: PIPERACILLIN/TAZ 3.375G PREMIX 50 ML IV SCH ×4 (01:10→17:52)
[2019-01-03] MEDS: HYDROMORPHONE HCL/PF 2MG/ML CPJ IV PRN ×2 (05:22→15:07)
[2019-01-03 05:47] LABS: BASOPHILS % 0.2 % (0.0-2.0); EOSINOPHILS % 0.5 % (0.0-5.0); HEMATOCRIT. 25.4 % (36.0-48.0); HEMOGLOBIN. 8.3 g/dL (12.0-16.0); LYMPHOCYTES % 11.6 % (20.0-50.0); MEAN CORPUSCULAR HEMOGLOBIN 27.8 pg (28.0-32.0); MEAN PLATELET VOLUME 8.8 fl (7.4-10.4); MONOCYTES % 14.8 % (2.0-8.0); NEUTROPHILS % 72.9 % (40.0-76.0); PLATELET 216 x1000/uL (130-400); RED BLOOD CELL COUNT 2.99 mill/uL (4.2-5.4); RED CELL DISTRIBUTION WIDTH 15.1 % (11.6-14.6)
[2019-01-03 05:57] LABS: CHLORIDE 102 mEq/L (98-107)
[2019-01-03 06:05] LABS: PHOSPHORUS 2.5 mg/dL (2.5-4.9)
[2019-01-03] MEDS: PANTOPRAZOLE SODIUM 40 MG/VIAL IV SCH ×2 (08:51→21:18)
[2019-01-03] MEDS: LACTULOSE 20G/30ML UDC PO SCH (08:51)
[2019-01-03] MEDS: MIDODRINE HCL 5MG TABLET PO SCH ×3 (08:52→17:51)
[2019-01-03] MEDS: POTASSIUM CHLORIDE 20MEQ/PACKET PO SCH (08:52)
[2019-01-03] MEDS: CLOTRIMAZOLE 1% CREAM 30GM TOP SCH ×2 (08:53→21:06)
[2019-01-03] MEDS: VANCOMYCIN 1 G PREMIX 200 ML IV SCH (08:57)
[2019-01-03] MEDS: KCL 20MEQ/100ML PREMIX 100 ML IV SCH ×2 (08:58→11:04)
[2019-01-03 09:12] LABS: BG BASE EXCESS 7.5 mmol/L (-2.0-2.0); BG CARBOXYHEMOGLOBIN 0.3 % (0.5-1.5); BG DEOXYHEMOGLOBIN 1.1 % (0.0-5.0); BG FRACTION INSPIRED OXYGEN 40; BG HCO3 ACT 31.9 mmol/L (22.0-26.0); BG METHEMOGLOBIN 0.4 % (0.0-1.5); BG OXYGEN SATURATION 98.9 % (92.0-98.5); BG OXYHEMOGLOBIN 98.2 % (94.0-97.0); BG PCO2 44.7 mmHg (35.0-45.0); BG PH 7.471 (7.350-7.450); BG PO2 157.4 mmHg (75.0-100.0); BG SAMPLE SITE RIGHT RADIAL; BG TIDAL VOLUME(mL) 450 mL; BG TOTAL HEMOGLOBIN 8.7 g/dL (12.0-18.0); BG VENT MODE VENT - A/C; BG VENT RATE 14 set
[2019-01-03] MEDS: PROPOFOL 10MG/ML 100ML 100 ML IV PRN ×3 (11:05→21:05)
[2019-01-03] MEDS: IPRATROPIUM BROMIDE (0.02%) 0.5MG/2.5ML NEB HHN SCH ×3 (12:11→20:07)
[2019-01-03] MEDS: THIAMINE HCL 100 MG, FOLIC ACID 1 MG, MVI, ADULT NO.1 10 ML in SODIUM CHLORIDE 0.9% 1,0... IV SCH ×4 (19:00)
[2019-01-03] MEDS: ACYCLOVIR INJ 500 MG in DEXT 5% WATER 100 ML IV SCH (21:18)
[2019-01-04] VITALS (46 sets, daily range): BP systolic 84–145; BP diastolic 47–89
[2019-01-04] MEDS: METOCLOPRAMIDE HCL 10MG/2ML VIAL IV SCH ×5 (00:32→23:26)
[2019-01-04] MEDS: PIPERACILLIN/TAZ 3.375G PREMIX 50 ML IV SCH ×3 (00:32→11:23)
[2019-01-04] MEDS: IPRATROPIUM BROMIDE (0.02%) 0.5MG/2.5ML NEB HHN SCH ×6 (00:48→20:20)
[2019-01-04] MEDS: VANCOMYCIN 1 G PREMIX 200 ML IV SCH ×2 (02:06→20:42)
[2019-01-04] MEDS: PROPOFOL 10MG/ML 100ML 100 ML IV PRN ×6 (02:06→23:24)
[2019-01-04 05:26] LABS: BASOPHILS % 0.3 % (0.0-2.0); EOSINOPHILS % 2.5 % (0.0-5.0); HEMOGLOBIN. 7.9 g/dL (12.0-16.0); LYMPHOCYTES % 11.1 % (20.0-50.0); MEAN CORPUSCULAR HEMOGLOBIN 28.4 pg (28.0-32.0); MONOCYTES % 14.1 % (2.0-8.0); PLATELET 254 x1000/uL (130-400); RED BLOOD CELL COUNT 2.79 mill/uL (4.2-5.4); RED CELL DISTRIBUTION WIDTH 15.3 % (11.6-14.6)
[2019-01-04 05:35] LABS: CHLORIDE 105 mEq/L (98-107)
[2019-01-04 05:40] LABS: PHOSPHORUS 3.6 mg/dL (2.5-4.9)
[2019-01-04 07:49] LABS: BG BASE EXCESS 4.8 mmol/L (-2.0-2.0); BG CARBOXYHEMOGLOBIN 0.4 % (0.5-1.5); BG HCO3 ACT 30.2 mmol/L (22.0-26.0); BG METHEMOGLOBIN 0.3 % (0.0-1.5); BG OXYHEMOGLOBIN 98.3 % (94.0-97.0); BG PCO2 49.7 mmHg (35.0-45.0); BG PH 7.402 (7.350-7.450); BG PO2 138.1 mmHg (75.0-100.0); BG SAMPLE SITE RIGHT RADIAL; BG TIDAL VOLUME(mL) 450 mL; BG TOTAL HEMOGLOBIN 8.6 g/dL (12.0-18.0); BG VENT MODE VENT - A/C; BG VENT RATE 14 set
[2019-01-04] MEDS: LACTULOSE 20G/30ML UDC PO SCH (08:18)
[2019-01-04] MEDS: PANTOPRAZOLE SODIUM 40 MG/VIAL IV SCH ×2 (08:19→20:42)
[2019-01-04] MEDS: CLOTRIMAZOLE 1% CREAM 30GM TOP SCH ×2 (08:19→20:43)
[2019-01-04] MEDS: POTASSIUM CHLORIDE 20MEQ/PACKET PO SCH (08:19)
[2019-01-04] MEDS: MIDODRINE HCL 5MG TABLET PO SCH ×3 (08:19→18:01)
[2019-01-04] MEDS: DEXTROSE 5% IV SCH ×2 (08:19→21:22)
[2019-01-04] MEDS: ACYCLOVIR IV SCH ×2 (08:19→21:22)
[2019-01-04] MEDS: WATER IV SCH ×2 (08:19→21:22)
[2019-01-04] MEDS ORDERED: MAGNESIUM 2 G PREMIX 50 ML IV SCH (09:00)
[2019-01-04] MEDS: ACETAMINOPHEN 325MG TABLET PO PRN (18:01)
[2019-01-04] MEDS: THIAMINE HCL 100 MG, FOLIC ACID 1 MG, MVI, ADULT NO.1 10 ML in SODIUM CHLORIDE 0.9% 1,0... IV SCH ×4 (19:07)
[2019-01-05] VITALS (47 sets, daily range): BP systolic 92–151; BP diastolic 61–95
[2019-01-05] MEDS: IPRATROPIUM BROMIDE (0.02%) 0.5MG/2.5ML NEB HHN SCH ×6 (00:23→20:59)
[2019-01-05] MEDS: PROPOFOL 10MG/ML 100ML 100 ML IV PRN ×3 (04:20→23:18)
[2019-01-05 05:44] LABS: BASOPHILS % 0.6 % (0.0-2.0); EOSINOPHILS % 2.1 % (0.0-5.0); HEMOGLOBIN. 8.5 g/dL (12.0-16.0); LYMPHOCYTES % 11.2 % (20.0-50.0); MEAN CORPUSCULAR HEMOGLOBIN 28.4 pg (28.0-32.0); MEAN CORPUSCULAR VOLUME 86.9 fL (81.0-99.0); MEAN PLATELET VOLUME 9.4 fl (7.4-10.4); MONOCYTES % 12.1 % (2.0-8.0); PLATELET 321 x1000/uL (130-400); RED BLOOD CELL COUNT 2.99 mill/uL (4.2-5.4); RED CELL DISTRIBUTION WIDTH 15.6 % (11.6-14.6)
[2019-01-05 05:51] LABS: CHLORIDE 107 mEq/L (98-107)
[2019-01-05 05:58] LABS: PHOSPHORUS 4.2 mg/dL (2.5-4.9)
[2019-01-05 07:22] LABS: BG BASE EXCESS 5.3 mmol/L (-2.0-2.0); BG CARBOXYHEMOGLOBIN 0.1 % (0.5-1.5); BG DEOXYHEMOGLOBIN 1.3 % (0.0-5.0); BG HCO3 ACT 30.3 mmol/L (22.0-26.0); BG METHEMOGLOBIN 0.5 % (0.0-1.5); BG OXYGEN SATURATION 98.7 % (92.0-98.5); BG OXYHEMOGLOBIN 98.1 % (94.0-97.0); BG PCO2 46.7 mmHg (35.0-45.0); BG PO2 140.3 mmHg (75.0-100.0); BG SAMPLE SITE RIGHT RADIAL; BG TIDAL VOLUME(mL) 450 mL; BG VENT MODE VENT - A/C; BG VENT RATE 14 set
[2019-01-05] MEDS: METOCLOPRAMIDE HCL 10MG/2ML VIAL IV SCH ×4 (07:23→23:18)
[2019-01-05] MEDS ORDERED: POTASSIUM CHLORIDE 20MEQ/PACKET NG NR (07:45)
[2019-01-05] MEDS: LACTULOSE 20G/30ML UDC PO SCH (08:23)
[2019-01-05] MEDS: ACYCLOVIR IV SCH ×2 (08:23→21:06)
[2019-01-05] MEDS: WATER IV SCH ×2 (08:23→21:06)
[2019-01-05] MEDS: POTASSIUM CHLORIDE 20MEQ/PACKET PO SCH (08:23)
[2019-01-05] MEDS: DEXTROSE 5% IV SCH ×2 (08:23→21:06)
[2019-01-05] MEDS: PANTOPRAZOLE SODIUM 40 MG/VIAL IV SCH ×2 (08:24→21:06)
[2019-01-05] MEDS: CLOTRIMAZOLE 1% CREAM 30GM TOP SCH ×2 (08:24→21:07)
[2019-01-05] MEDS: MIDODRINE HCL 5MG TABLET PO SCH ×3 (08:24→17:39)
[2019-01-05] MEDS ORDERED: MAGNESIUM 2 G PREMIX 50 ML IV NR (09:00)
[2019-01-05] MEDS: HYDROMORPHONE HCL/PF 2MG/ML CPJ IV PRN (10:00)
[2019-01-05 15:11] LABS: BG BASE EXCESS 4.5 mmol/L (-2.0-2.0); BG DEOXYHEMOGLOBIN 1.8 % (0.0-5.0); BG FRACTION INSPIRED OXYGEN 40; BG HCO3 ACT 30.3 mmol/L (22.0-26.0); BG METHEMOGLOBIN 0.2 % (0.0-1.5); BG OXYGEN SATURATION 98.2 % (92.0-98.5); BG PCO2 52.7 mmHg (35.0-45.0); BG PH 7.378 (7.350-7.450); BG PO2 118.5 mmHg (75.0-100.0); BG PRESSURE SUPPORT 14; BG SAMPLE SITE RIGHT RADIAL; BG TIDAL VOLUME(mL) 450 mL; BG TOTAL HEMOGLOBIN 8.7 g/dL (12.0-18.0); BG VENT MODE VENT - SIMV; BG VENT RATE 10 set
[2019-01-05] MEDS: THIAMINE HCL 100 MG, FOLIC ACID 1 MG, MVI, ADULT NO.1 10 ML in SODIUM CHLORIDE 0.9% 1,0... IV SCH ×4 (21:06)
[2019-01-06] VITALS (48 sets, daily range): BP systolic 123–161; BP diastolic 69–105
[2019-01-06] MEDS: IPRATROPIUM BROMIDE (0.02%) 0.5MG/2.5ML NEB HHN SCH ×6 (00:34→20:19)
[2019-01-06] MEDS: PROPOFOL 10MG/ML 100ML 100 ML IV PRN ×2 (05:28→15:22)
[2019-01-06 05:29] LABS: BASOPHILS % 0.5 % (0.0-2.0); EOSINOPHILS % 1.2 % (0.0-5.0); HEMATOCRIT. 25.6 % (36.0-48.0); HEMOGLOBIN. 8.4 g/dL (12.0-16.0); MEAN CORPUSCULAR HEMOGLOBIN 28.1 pg (28.0-32.0); MEAN PLATELET VOLUME 9.2 fl (7.4-10.4); MONOCYTES % 12.9 % (2.0-8.0); NEUTROPHILS % 71.4 % (40.0-76.0); PLATELET 404 x1000/uL (130-400); RED BLOOD CELL COUNT 2.97 mill/uL (4.2-5.4); RED CELL DISTRIBUTION WIDTH 15.7 % (11.6-14.6)
[2019-01-06] MEDS: METOCLOPRAMIDE HCL 10MG/2ML VIAL IV SCH ×3 (05:29→17:41)
[2019-01-06 05:48] LABS: CHLORIDE 107 mEq/L (98-107)
[2019-01-06 05:59] LABS: PHOSPHORUS 3.4 mg/dL (2.5-4.9)
[2019-01-06] MEDS: POTASSIUM CHLORIDE 20MEQ/PACKET PO SCH (08:33)
[2019-01-06] MEDS: PANTOPRAZOLE SODIUM 40 MG/VIAL IV SCH ×2 (08:33→21:45)
[2019-01-06] MEDS: LACTULOSE 20G/30ML UDC PO SCH (08:33)
[2019-01-06] MEDS: MIDODRINE HCL 5MG TABLET PO SCH ×2 (08:34→13:40)
[2019-01-06] MEDS: CLOTRIMAZOLE 1% CREAM 30GM TOP SCH ×2 (08:35→21:46)
[2019-01-06 08:43] LABS: BG BASE EXCESS 2.9 mmol/L (-2.0-2.0); BG CARBOXYHEMOGLOBIN 0.2 % (0.5-1.5); BG FRACTION INSPIRED OXYGEN 40; BG HCO3 ACT 27.2 mmol/L (22.0-26.0); BG METHEMOGLOBIN 0.3 % (0.0-1.5); BG OXYHEMOGLOBIN 98.5 % (94.0-97.0); BG PCO2 40.7 mmHg (35.0-45.0); BG PH 7.443 (7.350-7.450); BG PO2 135.4 mmHg (75.0-100.0); BG SAMPLE SITE RIGHT RADIAL; BG TIDAL VOLUME(mL) 450 mL; BG VENT MODE VENT - A/C; BG VENT RATE 14 set
[2019-01-06] MEDS: DEXT 5%/0.9% NACL 1,000 ML IV SCH (11:59)
[2019-01-06] MEDS: WATER IV SCH ×2 (12:11→21:45)
[2019-01-06] MEDS: DEXTROSE 5% IV SCH ×2 (12:11→21:45)
[2019-01-06] MEDS: ACYCLOVIR IV SCH ×2 (12:11→21:45)
[2019-01-06] MEDS ORDERED: PROPOFOL 10MG/ML 100ML 100 ML IV PRN (17:30)
[2019-01-07] VITALS (47 sets, daily range): BP systolic 100–167; BP diastolic 56–101
[2019-01-07] MEDS: METOCLOPRAMIDE HCL 10MG/2ML VIAL IV SCH ×5 (00:11→23:41)
[2019-01-07] MEDS: DEXT 5%/0.9% NACL 1,000 ML IV SCH ×2 (00:13→20:13)
[2019-01-07] MEDS: IPRATROPIUM BROMIDE (0.02%) 0.5MG/2.5ML NEB HHN SCH ×7 (00:19→23:58)
[2019-01-07 05:53] LABS: HEMATOCRIT. 24.9 % (36.0-48.0); HEMOGLOBIN. 8.1 g/dL (12.0-16.0); MEAN CORPUSCULAR HEMOGLOBIN 27.7 pg (28.0-32.0); MEAN CORPUSCULAR VOLUME 85.2 fL (81.0-99.0); MEAN PLATELET VOLUME 8.8 fl (7.4-10.4); PLATELET 432 x1000/uL (130-400); RED BLOOD CELL COUNT 2.92 mill/uL (4.2-5.4); RED CELL DISTRIBUTION WIDTH 15.3 % (11.6-14.6)
[2019-01-07 05:57] LABS: INR 1.1; PARTIAL THROMBOPLASTIN TIME 26.3 sec (23.4-31.0); PROTHROMBIN TIME 11.6 sec (9.6-11.0)
[2019-01-07 06:04] LABS: CHLORIDE 109 mEq/L (98-107)
[2019-01-07 06:19] LABS: PHOSPHORUS 3.1 mg/dL (2.5-4.9)
[2019-01-07] MEDS ORDERED: POTASSIUM CHLORIDE INJ 40 MEQ in DEXT 5% WATER 250 ML IV NR (08:30)
[2019-01-07] MEDS: LACTULOSE 20G/30ML UDC PO SCH (09:00)
[2019-01-07] MEDS: POTASSIUM CHLORIDE 20MEQ/PACKET PO SCH (09:00)
[2019-01-07] MEDS ORDERED: MAGNESIUM 4 G PREMIX 100 ML IV NR (09:30)
[2019-01-07] MEDS: PANTOPRAZOLE SODIUM 40 MG/VIAL IV SCH ×2 (09:41→20:13)
[2019-01-07] MEDS: ACYCLOVIR IV SCH ×2 (09:42→20:13)
[2019-01-07] MEDS: DEXTROSE 5% IV SCH ×2 (09:42→20:13)
[2019-01-07] MEDS: WATER IV SCH ×2 (09:42→20:13)
[2019-01-07] MEDS: CLOTRIMAZOLE 1% CREAM 30GM TOP SCH ×2 (09:45→20:14)
[2019-01-07] MEDS: HYDROMORPHONE HCL/PF 2MG/ML CPJ IV PRN ×2 (11:07→20:25)
[2019-01-07] MEDS: LORAZEPAM 2MG/ML CPJ IV PRN ×2 (11:53→18:43)
[2019-01-07 12:10] LABS: PLATELET ESTIMATE SLIGHTLY INCREASED
[2019-01-07] MEDS: QUETIAPINE FUMARATE 25MG TABLET PO SCH (20:13)
[2019-01-07] MEDS ORDERED: MIDAZOLAM HCL 5 MG/5 ML VIAL ONE (20:38)
[2019-01-07] MEDS ORDERED: ROCURONIUM BROMIDE 10MG/ML VIAL 5ML IV ONE (20:38)
[2019-01-07] MEDS ORDERED: CEFAZOLIN SODIUM 1000MG/VIAL ONE (20:54)
[2019-01-08] VITALS (45 sets, daily range): BP systolic 97–160; BP diastolic 60–95
[2019-01-08] MEDS: HYDROMORPHONE HCL/PF 2MG/ML CPJ IV PRN ×4 (00:26→16:34)
[2019-01-08] MEDS: IPRATROPIUM BROMIDE (0.02%) 0.5MG/2.5ML NEB HHN SCH ×6 (04:15→20:32)
[2019-01-08] MEDS: METOCLOPRAMIDE HCL 10MG/2ML VIAL IV SCH ×4 (05:03→23:48)
[2019-01-08 05:59] LABS: HEMATOCRIT. 24.9 % (36.0-48.0); HEMOGLOBIN. 8.1 g/dL (12.0-16.0); PLATELET 481 x1000/uL (130-400); RED BLOOD CELL COUNT 2.89 mill/uL (4.2-5.4); RED CELL DISTRIBUTION WIDTH 15.4 % (11.6-14.6)
[2019-01-08 06:17] LABS: CHLORIDE 106 mEq/L (98-107)
[2019-01-08 06:24] LABS: PHOSPHORUS 3.1 mg/dL (2.5-4.9)
[2019-01-08 07:10] LABS: PLATELET ESTIMATE SLIGHTLY INCREASED
[2019-01-08] MEDS: PANTOPRAZOLE SODIUM 40 MG/VIAL IV SCH ×2 (08:42→20:07)
[2019-01-08] MEDS: POTASSIUM CHLORIDE 20MEQ/PACKET PO SCH (08:42)
[2019-01-08] MEDS: ACETAMINOPHEN 325MG TABLET PO PRN ×2 (08:42→20:07)
[2019-01-08] MEDS: LACTULOSE 20G/30ML UDC PO SCH (09:00)
[2019-01-08] MEDS: CLOTRIMAZOLE 1% CREAM 30GM TOP SCH ×2 (09:00→20:08)
[2019-01-08] MEDS: DEXTROSE 5% IV SCH ×2 (10:57→20:07)
[2019-01-08] MEDS: WATER IV SCH ×2 (10:57→20:07)
[2019-01-08] MEDS: ACYCLOVIR IV SCH ×2 (10:57→20:07)
[2019-01-08] MEDS: DEXT 5%/0.9% NACL 1,000 ML IV SCH ×2 (11:38→23:48)
[2019-01-08] MEDS ORDERED: METOCLOPRAMIDE HCL 10MG/2ML VIAL IV SCH (12:00)
[2019-01-08] MEDS ORDERED: CEFAZOLIN 1000MG PREMIX 50 ML IV NR (14:30)
[2019-01-08] MEDS: LORAZEPAM 2MG/ML CPJ IV PRN (16:00)
[2019-01-08] MEDS ORDERED: KCL 20MEQ/100ML PREMIX 100 ML IV NR (17:30)
[2019-01-08] MEDS: QUETIAPINE FUMARATE 25MG TABLET PO SCH (20:07)
[2019-01-09] VITALS (36 sets, daily range): BP systolic 120–174; BP diastolic 73–106
[2019-01-09] MEDS: IPRATROPIUM BROMIDE (0.02%) 0.5MG/2.5ML NEB HHN SCH ×7 (00:10→20:00)
[2019-01-09] MEDS: HYDROMORPHONE HCL/PF 2MG/ML CPJ IV PRN (01:42)
[2019-01-09] MEDS: METOCLOPRAMIDE HCL 10MG/2ML VIAL IV SCH ×3 (06:34→18:02)
[2019-01-09] MEDS: WATER IV SCH ×2 (08:33→21:58)
[2019-01-09] MEDS: ACETAMINOPHEN 325MG TABLET PO PRN ×2 (08:33→20:19)
[2019-01-09] MEDS: ACYCLOVIR IV SCH ×2 (08:33→21:58)
[2019-01-09] MEDS: DEXTROSE 5% IV SCH ×2 (08:33→21:58)
[2019-01-09] MEDS: LACTULOSE 20G/30ML UDC PO SCH (09:00)
[2019-01-09] MEDS: PANTOPRAZOLE SODIUM 40 MG/VIAL IV SCH ×2 (09:46→21:58)
[2019-01-09] MEDS: POTASSIUM CHLORIDE 20MEQ/PACKET PO SCH (09:46)
[2019-01-09] MEDS ORDERED: SIMETHICONE 40 MG/0.6 ML 30ML ONE (09:57)
[2019-01-09] MEDS ORDERED: BACTERIOSTATIC SODIUM CHLORIDE 0.9% 30ML VIAL IJ ONE (09:57)
[2019-01-09] MEDS: LORAZEPAM 2MG/ML CPJ IV PRN (10:13)
[2019-01-09 10:26] LABS: BG BASE EXCESS 2.7 mmol/L (-2.0-2.0); BG CARBOXYHEMOGLOBIN 0.2 % (0.5-1.5); BG DEOXYHEMOGLOBIN 2.3 % (0.0-5.0); BG FRACTION INSPIRED OXYGEN 35; BG HCO3 ACT 28.2 mmol/L (22.0-26.0); BG METHEMOGLOBIN 0.3 % (0.0-1.5); BG OXYGEN SATURATION 97.7 % (92.0-98.5); BG OXYHEMOGLOBIN 97.2 % (94.0-97.0); BG PCO2 48.5 mmHg (35.0-45.0); BG PH 7.383 (7.350-7.450); BG PO2 105.6 mmHg (75.0-100.0); BG PRESSURE SUPPORT 14; BG SAMPLE SITE LEFT BRACHIAL; BG TIDAL VOLUME(mL) 450 mL; BG TOTAL HEMOGLOBIN 8.6 g/dL (12.0-18.0); BG VENT MODE VENT - SIMV; BG VENT RATE 10 set
[2019-01-09] MEDS: CEFEPIME 1,000 MG in DEXTROSE 5% WATER 50 ML IV SCH ×2 (12:28→21:58)
[2019-01-09] MEDS: CLOTRIMAZOLE 1% CREAM 30GM TOP SCH ×2 (12:31→21:58)
[2019-01-09] MEDS ORDERED: CEFAZOLIN SODIUM 1000MG/VIAL IM ONE (13:00)
[2019-01-09] MEDS ORDERED: MIDAZOLAM HCL 5 MG/5 ML VIAL ONE (14:58)
[2019-01-09] MEDS ORDERED: FENTANYL CITRATE/PF 50MCG/ML 2ML VIAL ONE (14:58)
[2019-01-09] MEDS ORDERED: FENTANYL CITRATE/PF 50MCG/ML 2ML VIAL IV PRN (15:37)
[2019-01-09] MEDS ORDERED: MIDAZOLAM HCL 5 MG/5 ML VIAL IV PRN (15:38)
[2019-01-09] MEDS: DEXT 5%/0.9% NACL 1,000 ML IV SCH ×2 (18:03→18:25)
[2019-01-09] MEDS: QUETIAPINE FUMARATE 25MG TABLET PO SCH (21:58)
[2019-01-10] VITALS (14 sets, daily range): BP systolic 124–161; BP diastolic 71–95
[2019-01-10] MEDS: METOCLOPRAMIDE HCL 10MG/2ML VIAL IV SCH ×5 (01:20→23:04)
[2019-01-10 06:14] LABS: HEMATOCRIT. 25.4 % (36.0-48.0); HEMOGLOBIN. 8.2 g/dL (12.0-16.0); MEAN CORPUSCULAR HEMOGLOBIN 27.8 pg (28.0-32.0); MEAN CORPUSCULAR VOLUME 85.5 fL (81.0-99.0); MEAN PLATELET VOLUME 8.5 fl (7.4-10.4); PLATELET 433 x1000/uL (130-400); RED BLOOD CELL COUNT 2.97 mill/uL (4.2-5.4); RED CELL DISTRIBUTION WIDTH 15.4 % (11.6-14.6)
[2019-01-10 06:30] LABS: CHLORIDE 106 mEq/L (98-107)
[2019-01-10] MEDS: DEXT 5%/0.9% NACL 1,000 ML IV SCH ×2 (07:35→23:03)
[2019-01-10 07:36] LABS: PLATELET ESTIMATE SLIGHTLY INCREASED
[2019-01-10] MEDS: CEFEPIME 1,000 MG in DEXTROSE 5% WATER 50 ML IV SCH ×2 (08:32→20:22)
[2019-01-10] MEDS: PANTOPRAZOLE SODIUM 40 MG/VIAL IV SCH ×2 (08:32→20:22)
[2019-01-10] MEDS: POTASSIUM CHLORIDE 20MEQ/PACKET PO SCH (08:33)
[2019-01-10] MEDS: IPRATROPIUM BROMIDE (0.02%) 0.5MG/2.5ML NEB HHN SCH ×4 (08:48→20:35)
[2019-01-10] MEDS: LACTULOSE 20G/30ML UDC PO SCH (09:00)
[2019-01-10] MEDS: ONDANSETRON HCL 4MG/2ML INJ IV PRN (09:30)
[2019-01-10] MEDS: HYDROMORPHONE HCL/PF 2MG/ML CPJ IV PRN ×2 (09:38→18:24)
[2019-01-10] MEDS: WATER IV SCH ×2 (10:35→21:19)
[2019-01-10] MEDS: DEXTROSE 5% IV SCH ×2 (10:35→21:19)
[2019-01-10] MEDS: ACYCLOVIR IV SCH ×2 (10:35→21:19)
[2019-01-10 13:13] LABS: PHOSPHORUS 3.4 mg/dL (2.5-4.9)
[2019-01-10] MEDS ORDERED: POTASSIUM CHLORIDE INJ 40 MEQ in DEXT 5% WATER 250 ML IV SCH (14:00)
[2019-01-10] MEDS: CLOTRIMAZOLE 1% CREAM 30GM TOP SCH ×2 (14:49→23:03)
[2019-01-10] MEDS ORDERED: MAGNESIUM 2 G PREMIX 50 ML IV NR (15:00)
[2019-01-10 17:31] LABS: CLARITY URINE CLOUDY (CLEAR); COLOR URINE YELLOW (YELLOW); KETONES URINE NEGATIVE (NEGATIVE); LEUKOCYTE ESTERASE URINE NEGATIVE (NEGATIVE); NITRITE URINE NEGATIVE (NEGATIVE); OCCULT BLOOD URINE 3+ (NEGATIVE); PH URINE 6.5 (4.5-8.0); PROTEIN URINE TRACE (NEGATIVE); SPECIFIC GRAVITY URINE 1.011 (1.005-1.030); UROBILINOGEN URINE 0.2 E.U./dL (0.2-1.0)
[2019-01-10] MEDS: QUETIAPINE FUMARATE 25MG TABLET PO SCH (20:22)
[2019-01-10] MEDS: LORAZEPAM 2MG/ML CPJ IV PRN (21:25)
[2019-01-11] VITALS (12 sets, daily range): BP systolic 127–156; BP diastolic 78–104
[2019-01-11] MEDS: IPRATROPIUM BROMIDE (0.02%) 0.5MG/2.5ML NEB HHN SCH ×6 (00:50→20:48)
[2019-01-11] MEDS: HYDROMORPHONE HCL/PF 2MG/ML CPJ IV PRN ×4 (03:10→21:24)
[2019-01-11] MEDS: METOCLOPRAMIDE HCL 10MG/2ML VIAL IV SCH ×3 (05:58→17:26)
[2019-01-11 05:59] LABS: HEMOGLOBIN. 8.2 g/dL (12.0-16.0); MEAN CORPUSCULAR HEMOGLOBIN 28.3 pg (28.0-32.0); MEAN CORPUSCULAR VOLUME 86.4 fL (81.0-99.0); MEAN PLATELET VOLUME 9.1 fl (7.4-10.4); PLATELET 389 x1000/uL (130-400); RED BLOOD CELL COUNT 2.89 mill/uL (4.2-5.4); RED CELL DISTRIBUTION WIDTH 15.1 % (11.6-14.6)
[2019-01-11 06:09] LABS: CHLORIDE 108 mEq/L (98-107)
[2019-01-11 06:20] LABS: PHOSPHORUS 2.3 mg/dL (2.5-4.9)
[2019-01-11] MEDS: PANTOPRAZOLE SODIUM 40 MG/VIAL IV SCH ×2 (08:32→20:46)
[2019-01-11] MEDS: ACETAMINOPHEN 325MG TABLET PO PRN (08:33)
[2019-01-11] MEDS: POTASSIUM CHLORIDE 20MEQ/PACKET PO SCH (08:33)
[2019-01-11] MEDS: CEFEPIME 1,000 MG in DEXTROSE 5% WATER 50 ML IV SCH ×2 (08:42→20:47)
[2019-01-11] MEDS: LACTULOSE 20G/30ML UDC PO SCH (09:00)
[2019-01-11] MEDS ORDERED: SODIUM PHOS,M-BASIC-D-BASIC 15 MM in DEXT 5% WATER 245 ML IV NR (09:30)
[2019-01-11 09:58] LABS: PLATELET ESTIMATE NORMAL
[2019-01-11] MEDS: ACYCLOVIR IV SCH ×2 (10:16→20:47)
[2019-01-11] MEDS: DEXTROSE 5% IV SCH ×2 (10:16→20:47)
[2019-01-11] MEDS: WATER IV SCH ×2 (10:16→20:47)
[2019-01-11] MEDS: CLOTRIMAZOLE 1% CREAM 30GM TOP SCH ×2 (10:23→20:47)
[2019-01-11] MEDS: MICAFUNGIN 100 MG in SODIUM CHLORIDE 0.9% 100 ML IV SCH (17:47)
[2019-01-11] MEDS: DEXT 5%/0.9% NACL 1,000 ML IV SCH (17:55)
[2019-01-11] MEDS: QUETIAPINE FUMARATE 25MG TABLET PO SCH (20:46)
[2019-01-12] VITALS (12 sets, daily range): BP systolic 92–161; BP diastolic 60–95
[2019-01-12] MEDS: METOCLOPRAMIDE HCL 10MG/2ML VIAL IV SCH ×4 (00:22→17:25)
[2019-01-12] MEDS: DIPHENHYDRAMINE 50MG/ML VIAL IV PRN (00:46)
[2019-01-12] MEDS: IPRATROPIUM BROMIDE (0.02%) 0.5MG/2.5ML NEB HHN SCH ×6 (02:29→23:42)
[2019-01-12] MEDS: HYDROMORPHONE HCL/PF 2MG/ML CPJ IV PRN ×3 (03:55→19:40)
[2019-01-12 06:14] LABS: HEMATOCRIT. 22.8 % (36.0-48.0); HEMOGLOBIN. 7.5 g/dL (12.0-16.0); MEAN CORPUSCULAR HEMOGLOBIN 28.2 pg (28.0-32.0); MEAN CORPUSCULAR VOLUME 86.4 fL (81.0-99.0); MEAN PLATELET VOLUME 9.1 fl (7.4-10.4); PLATELET 361 x1000/uL (130-400); RED BLOOD CELL COUNT 2.64 mill/uL (4.2-5.4); RED CELL DISTRIBUTION WIDTH 15.2 % (11.6-14.6)
[2019-01-12 06:26] LABS: CHLORIDE 105 mEq/L (98-107)
[2019-01-12 06:32] LABS: PHOSPHORUS 3.2 mg/dL (2.5-4.9)
[2019-01-12] MEDS: LACTULOSE 20G/30ML UDC PO SCH (08:00)
[2019-01-12] MEDS: POTASSIUM CHLORIDE 20MEQ/PACKET PO SCH (08:00)
[2019-01-12] MEDS: CLOTRIMAZOLE 1% CREAM 30GM TOP SCH ×2 (08:00→21:26)
[2019-01-12] MEDS: PANTOPRAZOLE SODIUM 40 MG/VIAL IV SCH ×2 (08:00→21:25)
[2019-01-12] MEDS: CEFEPIME 1,000 MG in DEXTROSE 5% WATER 50 ML IV SCH ×2 (08:00→21:25)
[2019-01-12] MEDS ORDERED: MAGNESIUM 4 G PREMIX 100 ML IV SCH (10:00)
[2019-01-12 11:25] LABS: PLATELET ESTIMATE NORMAL
[2019-01-12] MEDS: DEXT 5%/0.9% NACL 1,000 ML IV SCH (12:21)
[2019-01-12] MEDS: MICAFUNGIN 100 MG in SODIUM CHLORIDE 0.9% 100 ML IV SCH (16:46)
[2019-01-12] MEDS: ACETAMINOPHEN 325MG TABLET PO PRN (20:12)
[2019-01-12] MEDS: LORAZEPAM 2MG/ML CPJ IV PRN (21:25)
[2019-01-12] MEDS: ZINC OXIDE 20% OINT 30GM TOP SCH (21:25)
[2019-01-12 22:00] LABS: HEMATOCRIT. 21.6 % (36.0-48.0); HEMOGLOBIN. 7.2 g/dL (12.0-16.0); MEAN CORPUSCULAR HEMOGLOBIN 28.3 pg (28.0-32.0); MEAN CORPUSCULAR VOLUME 85.5 fL (81.0-99.0); MEAN PLATELET VOLUME 8.7 fl (7.4-10.4); PLATELET 308 x1000/uL (130-400); RED BLOOD CELL COUNT 2.53 mill/uL (4.2-5.4); RED CELL DISTRIBUTION WIDTH 15.1 % (11.6-14.6)
[2019-01-12 22:46] LABS: ATYPICAL LYMPHOCYTES 2; PLATELET ESTIMATE NORMAL
[2019-01-13] VITALS (22 sets, daily range): BP systolic 104–158; BP diastolic 56–102
[2019-01-13] MEDS: METOCLOPRAMIDE HCL 10MG/2ML VIAL IV SCH ×4 (00:13→18:24)
[2019-01-13] MEDS: QUETIAPINE FUMARATE 25MG TABLET PO SCH ×2 (00:13→21:37)
[2019-01-13] MEDS: HYDROMORPHONE HCL/PF 2MG/ML CPJ IV PRN ×5 (01:57→20:22)
[2019-01-13] MEDS: IPRATROPIUM BROMIDE (0.02%) 0.5MG/2.5ML NEB HHN SCH ×5 (03:47→20:45)
[2019-01-13 05:41] LABS: MEAN CORPUSCULAR HEMOGLOBIN 28.2 pg (28.0-32.0); MEAN CORPUSCULAR VOLUME 85.3 fL (81.0-99.0); PLATELET 282 x1000/uL (130-400); RED BLOOD CELL COUNT 2.16 mill/uL (4.2-5.4); RED CELL DISTRIBUTION WIDTH 14.8 % (11.6-14.6)
[2019-01-13 06:39] LABS: HEMATOCRIT. 18.4 % (36.0-48.0); HEMOGLOBIN. 6.1 g/dL (12.0-16.0)
[2019-01-13] MEDS: ZINC OXIDE 20% OINT 30GM TOP SCH ×2 (08:22→17:43)
[2019-01-13] MEDS: POTASSIUM CHLORIDE 20MEQ/PACKET PO SCH (08:22)
[2019-01-13] MEDS: CLOTRIMAZOLE 1% CREAM 30GM TOP SCH ×2 (08:22→21:37)
[2019-01-13] MEDS: PANTOPRAZOLE SODIUM 40 MG/VIAL IV SCH ×2 (08:22→21:36)
[2019-01-13] MEDS: CEFEPIME 1,000 MG in DEXTROSE 5% WATER 50 ML IV SCH ×2 (08:23→21:36)
[2019-01-13 08:55] LABS: PHOSPHORUS 2.5 mg/dL (2.5-4.9)
[2019-01-13] MEDS: LACTULOSE 20G/30ML UDC PO SCH (09:00)
[2019-01-13 09:21] LABS: CHLORIDE 104 mEq/L (98-107)
[2019-01-13 12:20] LABS: PLATELET ESTIMATE NORMAL
[2019-01-13] MEDS: ACETAMINOPHEN 325MG TABLET PO PRN (17:40)
[2019-01-13] MEDS: MICAFUNGIN 100 MG in SODIUM CHLORIDE 0.9% 100 ML IV SCH (18:24)
[2019-01-13 21:45] LABS: HEMATOCRIT 28.1 % (36.0-48.0); HEMOGLOBIN 9.3 g/dL (12.0-16.0)
[2019-01-14] VITALS (22 sets, daily range): BP systolic 106–154; BP diastolic 65–119
[2019-01-14] MEDS: METOCLOPRAMIDE HCL 10MG/2ML VIAL IV SCH ×4 (00:13→17:26)
[2019-01-14] MEDS: IPRATROPIUM BROMIDE (0.02%) 0.5MG/2.5ML NEB HHN SCH ×6 (00:18→20:37)
[2019-01-14 05:04] LABS: HEMATOCRIT. 25.7 % (36.0-48.0); MEAN CORPUSCULAR HEMOGLOBIN 27.2 pg (28.0-32.0); MEAN CORPUSCULAR VOLUME 81.5 fL (81.0-99.0); MEAN PLATELET VOLUME 8.9 fl (7.4-10.4); PLATELET 256 x1000/uL (130-400); RED BLOOD CELL COUNT 3.16 mill/uL (4.2-5.4); RED CELL DISTRIBUTION WIDTH 20.5 % (11.6-14.6)
[2019-01-14 05:48] LABS: CHLORIDE 103 mEq/L (98-107)
[2019-01-14 05:57] LABS: PHOSPHORUS 2.5 mg/dL (2.5-4.9)
[2019-01-14] MEDS: LORAZEPAM 2MG/ML CPJ IV PRN (06:15)
[2019-01-14 06:20] LABS: HEMOGLOBIN. 8.6 g/dL (12.0-16.0)
[2019-01-14 07:14] LABS: PLATELET ESTIMATE NORMAL
[2019-01-14] MEDS ORDERED: MAGNESIUM 4 G PREMIX 100 ML IV SCH (09:00)
[2019-01-14] MEDS: PANTOPRAZOLE SODIUM 40 MG/VIAL IV SCH ×2 (09:05→21:19)
[2019-01-14] MEDS: CEFEPIME 1,000 MG in DEXTROSE 5% WATER 50 ML IV SCH ×2 (09:06→21:19)
[2019-01-14] MEDS: POTASSIUM CHLORIDE 20MEQ/PACKET PO SCH (09:06)
[2019-01-14] MEDS: ZINC OXIDE 20% OINT 30GM TOP SCH ×2 (09:07→17:28)
[2019-01-14] MEDS: CLOTRIMAZOLE 1% CREAM 30GM TOP SCH (09:07)
[2019-01-14] MEDS: HYDROMORPHONE HCL/PF 2MG/ML CPJ IV PRN ×4 (09:09→21:23)
[2019-01-14] MEDS: LACTULOSE 20G/30ML UDC PO SCH (09:23)
[2019-01-14] MEDS ORDERED: CLONIDINE 0.1MG TABLET PO PRN (11:30)
[2019-01-14] MEDS: AMLODIPINE 2.5MG TABLET PO SCH ×2 (13:09→21:21)
[2019-01-14] MEDS: MICAFUNGIN 100 MG in SODIUM CHLORIDE 0.9% 100 ML IV SCH (17:27)
[2019-01-14] MEDS: ACETAMINOPHEN 325MG TABLET PO PRN (21:21)
[2019-01-14] MEDS: ONDANSETRON HCL 4MG/2ML INJ IV PRN (21:22)
[2019-01-14] MEDS: QUETIAPINE FUMARATE 25MG TABLET PO SCH (21:25)
[2019-01-15] VITALS (12 sets, daily range): BP systolic 86–142; BP diastolic 63–87
[2019-01-15] MEDS: METOCLOPRAMIDE HCL 10MG/2ML VIAL IV SCH ×4 (00:08→18:18)
[2019-01-15] MEDS: IPRATROPIUM BROMIDE (0.02%) 0.5MG/2.5ML NEB HHN SCH ×6 (00:12→20:28)
[2019-01-15] MEDS: LORAZEPAM 2MG/ML CPJ IV PRN ×2 (05:34→18:17)
[2019-01-15 06:33] LABS: HEMATOCRIT. 24.9 % (36.0-48.0); HEMOGLOBIN. 8.2 g/dL (12.0-16.0); MEAN CORPUSCULAR HEMOGLOBIN 27.2 pg (28.0-32.0); MEAN CORPUSCULAR VOLUME 82.1 fL (81.0-99.0); PLATELET 263 x1000/uL (130-400); RED BLOOD CELL COUNT 3.03 mill/uL (4.2-5.4); RED CELL DISTRIBUTION WIDTH 20.2 % (11.6-14.6)
[2019-01-15 07:11] LABS: PLATELET ESTIMATE NORMAL
[2019-01-15 08:36] LABS: CHLORIDE 100 mEq/L (98-107)
[2019-01-15 08:43] LABS: PHOSPHORUS 3.2 mg/dL (2.5-4.9)
[2019-01-15] MEDS: AMLODIPINE 2.5MG TABLET PO SCH ×2 (09:00→21:00)
[2019-01-15] MEDS: PANTOPRAZOLE SODIUM 40 MG/VIAL IV SCH ×2 (09:02→21:16)
[2019-01-15] MEDS: CEFEPIME 1,000 MG in DEXTROSE 5% WATER 50 ML IV SCH ×2 (09:02→21:17)
[2019-01-15] MEDS: LACTULOSE 20G/30ML UDC PO SCH (09:02)
[2019-01-15] MEDS: POTASSIUM CHLORIDE 20MEQ/PACKET PO SCH (09:02)
[2019-01-15] MEDS: ZINC OXIDE 20% OINT 30GM TOP SCH ×2 (09:03→17:11)
[2019-01-15] MEDS: HYDROMORPHONE HCL/PF 2MG/ML CPJ IV PRN ×2 (12:01→18:59)
[2019-01-15] MEDS: ONDANSETRON HCL 4MG/2ML INJ IV PRN ×2 (12:01→18:59)
[2019-01-15] MEDS: ACETAMINOPHEN 325MG TABLET PO PRN (16:48)
[2019-01-15] MEDS: MICAFUNGIN 100 MG in SODIUM CHLORIDE 0.9% 100 ML IV SCH (17:11)
[2019-01-15] MEDS: QUETIAPINE FUMARATE 25MG TABLET PO SCH (21:19)
[2019-01-16] VITALS (12 sets, daily range): BP systolic 117–162; BP diastolic 70–116
[2019-01-16] MEDS: IPRATROPIUM BROMIDE (0.02%) 0.5MG/2.5ML NEB HHN SCH ×6 (00:06→21:12)
[2019-01-16] MEDS: METOCLOPRAMIDE HCL 10MG/2ML VIAL IV SCH ×4 (01:14→16:31)
[2019-01-16] MEDS: HYDROMORPHONE HCL/PF 2MG/ML CPJ IV PRN ×2 (04:41→21:04)
[2019-01-16 06:12] LABS: HEMATOCRIT. 27.5 % (36.0-48.0); HEMOGLOBIN. 8.9 g/dL (12.0-16.0); MEAN CORPUSCULAR HEMOGLOBIN 27.1 pg (28.0-32.0); MEAN CORPUSCULAR VOLUME 83.4 fL (81.0-99.0); MEAN PLATELET VOLUME 8.9 fl (7.4-10.4); PLATELET 274 x1000/uL (130-400); RED CELL DISTRIBUTION WIDTH 20.4 % (11.6-14.6)
[2019-01-16 06:53] LABS: CHLORIDE 99 mEq/L (98-107)
[2019-01-16] MEDS ORDERED: HEPARIN 1,000 UNITS PREMIX 0 ML IV ONE (08:46)
[2019-01-16] MEDS ORDERED: LIDOCAINE HCL 1% 20ML VIAL (Pyxis) INJ ONE (08:46)
[2019-01-16] MEDS ORDERED: SODIUM BICARBONATE 4% (2.4MEQ) 5ML VIAL IV ONE (08:46)
[2019-01-16] MEDS ORDERED: HEPARIN 1000 UNITS/ML 10ML ONE (08:47)
[2019-01-16] MEDS ORDERED: IOHEXOL-300 100 ML BOTTLE ONE (08:50)
[2019-01-16] MEDS: PANTOPRAZOLE SODIUM 40 MG/VIAL IV SCH ×2 (09:09→21:02)
[2019-01-16] MEDS: AMLODIPINE 2.5MG TABLET PO SCH ×2 (09:09→21:03)
[2019-01-16] MEDS: LACTULOSE 20G/30ML UDC PO SCH (09:09)
[2019-01-16] MEDS: CEFEPIME 1,000 MG in DEXTROSE 5% WATER 50 ML IV SCH (09:09)
[2019-01-16] MEDS: POTASSIUM CHLORIDE 20MEQ/PACKET PO SCH (09:10)
[2019-01-16] MEDS: ZINC OXIDE 20% OINT 30GM TOP SCH ×2 (09:10→16:32)
[2019-01-16 09:39] LABS: PLATELET ESTIMATE NORMAL
[2019-01-16] MEDS: DIPHENHYDRAMINE 50MG/ML VIAL IV PRN (10:11)
[2019-01-16] MEDS: ACETAMINOPHEN 325MG TABLET PO PRN (11:34)
[2019-01-16] MEDS: LORAZEPAM 2MG/ML CPJ IV PRN (12:29)
[2019-01-16] MEDS: MICAFUNGIN 100 MG in SODIUM CHLORIDE 0.9% 100 ML IV SCH (16:32)
[2019-01-16] MEDS: QUETIAPINE FUMARATE 25MG TABLET PO SCH (21:03)
[2019-01-16] MEDS: IPRATROPIUM/ALBUTEROL 0.5-3(2.5)MG/3ML NEB INH PRN (21:12)
[2019-01-17] VITALS (13 sets, daily range): BP systolic 119–152; BP diastolic 72–98
[2019-01-17] MEDS: METOCLOPRAMIDE HCL 10MG/2ML VIAL IV SCH ×4 (00:16→17:26)
[2019-01-17] MEDS: IPRATROPIUM BROMIDE (0.02%) 0.5MG/2.5ML NEB HHN SCH ×6 (01:05→20:13)
[2019-01-17] MEDS: HYDROMORPHONE HCL/PF 2MG/ML CPJ IV PRN ×4 (05:31→19:23)
[2019-01-17 06:56] LABS: HEMATOCRIT. 25.5 % (36.0-48.0); HEMOGLOBIN. 8.3 g/dL (12.0-16.0); MEAN CORPUSCULAR HEMOGLOBIN 27.1 pg (28.0-32.0); MEAN CORPUSCULAR VOLUME 83.3 fL (81.0-99.0); MEAN PLATELET VOLUME 9.2 fl (7.4-10.4); PLATELET 272 x1000/uL (130-400); RED BLOOD CELL COUNT 3.06 mill/uL (4.2-5.4); RED CELL DISTRIBUTION WIDTH 20.2 % (11.6-14.6)
[2019-01-17 07:51] LABS: CHLORIDE 101 mEq/L (98-107)
[2019-01-17 07:56] LABS: PHOSPHORUS 3.2 mg/dL (2.5-4.9)
[2019-01-17 08:16] LABS: PLATELET ESTIMATE NORMAL
[2019-01-17] MEDS: PANTOPRAZOLE SODIUM 40 MG/VIAL IV SCH ×2 (08:24→21:09)
[2019-01-17] MEDS: POTASSIUM CHLORIDE 20MEQ/PACKET PO SCH (08:24)
[2019-01-17] MEDS: AMLODIPINE 2.5MG TABLET PO SCH ×2 (08:24→19:49)
[2019-01-17] MEDS: MAGNESIUM OXIDE 400MG TABLET PO SCH ×2 (08:28→16:47)
[2019-01-17] MEDS: LACTULOSE 20G/30ML UDC PO SCH ×2 (08:42→10:05)
[2019-01-17] MEDS: ZINC OXIDE 20% OINT 30GM TOP SCH ×2 (08:42→16:16)
[2019-01-17] MEDS ORDERED: SODIUM BICARBONATE 4% (2.4MEQ) 5ML VIAL IV ONE (10:49)
[2019-01-17] MEDS ORDERED: LIDOCAINE HCL 1% 20ML VIAL (Pyxis) INJ ONE (10:49)
[2019-01-17] MEDS: MICAFUNGIN 100 MG in SODIUM CHLORIDE 0.9% 100 ML IV SCH (16:47)
[2019-01-17] MEDS: QUETIAPINE FUMARATE 25MG TABLET PO SCH (19:50)
[2019-01-17] MEDS: ONDANSETRON HCL 4MG/2ML INJ IV PRN (22:39)
[2019-01-17] MEDS: DIPHENHYDRAMINE 50MG/ML VIAL IV PRN (22:39)
[2019-01-18] VITALS (11 sets, daily range): BP systolic 108–148; BP diastolic 53–91
[2019-01-18] MEDS: IPRATROPIUM BROMIDE (0.02%) 0.5MG/2.5ML NEB HHN SCH ×6 (00:29→20:20)
[2019-01-18] MEDS: METOCLOPRAMIDE HCL 10MG/2ML VIAL IV SCH ×4 (00:40→18:27)
[2019-01-18] MEDS: HYDROMORPHONE HCL/PF 2MG/ML CPJ IV PRN ×5 (00:40→21:34)
[2019-01-18 06:55] LABS: HEMOGLOBIN. 8.4 g/dL (12.0-16.0); MEAN CORPUSCULAR HEMOGLOBIN 27.1 pg (28.0-32.0); MEAN CORPUSCULAR VOLUME 84.2 fL (81.0-99.0); MEAN PLATELET VOLUME 9.4 fl (7.4-10.4); PLATELET 309 x1000/uL (130-400); RED BLOOD CELL COUNT 3.09 mill/uL (4.2-5.4); RED CELL DISTRIBUTION WIDTH 19.9 % (11.6-14.6)
[2019-01-18 07:32] LABS: CHLORIDE 103 mEq/L (98-107)
[2019-01-18] MEDS: POTASSIUM CHLORIDE 20MEQ/PACKET PO SCH (09:24)
[2019-01-18] MEDS: AMLODIPINE 2.5MG TABLET PO SCH ×3 (09:24→21:09)
[2019-01-18] MEDS: PANTOPRAZOLE SODIUM 40 MG/VIAL IV SCH ×2 (09:24→21:07)
[2019-01-18] MEDS: MAGNESIUM OXIDE 400MG TABLET PO SCH ×2 (09:24→16:57)
[2019-01-18] MEDS: LACTULOSE 20G/30ML UDC PO SCH (09:24)
[2019-01-18 09:59] LABS: PLATELET ESTIMATE NORMAL
[2019-01-18] MEDS: LORAZEPAM 2MG/ML CPJ IV PRN (11:11)
[2019-01-18] MEDS: ZINC OXIDE 20% OINT 30GM TOP SCH ×2 (13:22→17:22)
[2019-01-18] MEDS ORDERED: TERA2CAP4 PO (15:13)
[2019-01-18] MEDS ORDERED: PANT40TA4 PO (15:13)
[2019-01-18] MEDS ORDERED: BETH25TA PO (15:13)
[2019-01-18] MEDS ORDERED: ACYC400T5 PO (15:13)
[2019-01-18] MEDS ORDERED: P20 MT (15:13)
[2019-01-18] MEDS ORDERED: ASPI-1159 PO (15:13)
[2019-01-18] MEDS: ONDANSETRON HCL 4MG/2ML INJ IV PRN (16:00)
[2019-01-18] MEDS: MICAFUNGIN 100 MG in SODIUM CHLORIDE 0.9% 100 ML IV SCH (16:53)
[2019-01-18] MEDS: QUETIAPINE FUMARATE 25MG TABLET PO SCH (21:10)
[2019-01-18] MEDS: GABAPENTIN 300MG CAPSULE PO SCH (21:12)
[2019-01-19] VITALS (12 sets, daily range): BP systolic 102–143; BP diastolic 66–88
[2019-01-19] MEDS: IPRATROPIUM BROMIDE (0.02%) 0.5MG/2.5ML NEB HHN SCH ×6 (04:08→20:20)
[2019-01-19] MEDS: HYDROMORPHONE HCL/PF 2MG/ML CPJ IV PRN ×4 (05:19→17:55)
[2019-01-19] MEDS: METOCLOPRAMIDE HCL 10MG/2ML VIAL IV SCH ×4 (05:54→17:21)
[2019-01-19] MEDS: GABAPENTIN 300MG CAPSULE PO SCH ×3 (05:56→22:07)
[2019-01-19 06:51] LABS: HEMATOCRIT. 27.4 % (36.0-48.0); HEMOGLOBIN. 8.8 g/dL (12.0-16.0); MEAN CORPUSCULAR VOLUME 84.4 fL (81.0-99.0); MEAN PLATELET VOLUME 9.4 fl (7.4-10.4); PLATELET 286 x1000/uL (130-400); RED BLOOD CELL COUNT 3.24 mill/uL (4.2-5.4); RED CELL DISTRIBUTION WIDTH 20.3 % (11.6-14.6)
[2019-01-19 07:09] LABS: CHLORIDE 104 mEq/L (98-107)
[2019-01-19] MEDS: LACTULOSE 20G/30ML UDC PO SCH (08:44)
[2019-01-19] MEDS: POTASSIUM CHLORIDE 20MEQ/PACKET PO SCH (08:44)
[2019-01-19] MEDS: PANTOPRAZOLE SODIUM 40 MG/VIAL IV SCH ×2 (08:44→22:04)
[2019-01-19] MEDS: MAGNESIUM OXIDE 400MG TABLET PO SCH ×2 (08:44→17:21)
[2019-01-19] MEDS: ZINC OXIDE 20% OINT 30GM TOP SCH ×2 (08:45→17:21)
[2019-01-19 09:27] LABS: NUCLEATED RED BLOOD CELLS 1 /100 WBC; PLATELET ESTIMATE NORMAL
[2019-01-19] MEDS: LORAZEPAM 2MG/ML CPJ IV PRN (12:09)
[2019-01-19 17:17] LABS: HEMATOCRIT 27.2 % (36.0-48.0); HEMOGLOBIN 8.7 g/dL (12.0-16.0)
[2019-01-19 19:35] LABS: D-DIMER 3.15 mg/L FEU (<0.50); INR 1.2; PARTIAL THROMBOPLASTIN TIME 23.8 sec (23.4-31.0); PROTHROMBIN TIME 12.1 sec (9.6-11.0)
[2019-01-19] MEDS: AMLODIPINE 2.5MG TABLET PO SCH (21:00)
[2019-01-19] MEDS: QUETIAPINE FUMARATE 25MG TABLET PO SCH (21:00)
[2019-01-19] MEDS: PETROLATUM,WHITE OPHTH OINT 3.5GM BOTHEYE SCH (22:10)
[2019-01-20] VITALS (10 sets, daily range): BP systolic 111–153; BP diastolic 73–95
[2019-01-20] MEDS: IPRATROPIUM BROMIDE (0.02%) 0.5MG/2.5ML NEB HHN SCH ×3 (00:21→20:24)
[2019-01-20] MEDS: METOCLOPRAMIDE HCL 10MG/2ML VIAL IV SCH ×4 (00:25→18:00)
[2019-01-20] MEDS: HYDROMORPHONE HCL/PF 2MG/ML CPJ IV PRN ×4 (05:36→20:52)
[2019-01-20] MEDS: GABAPENTIN 300MG CAPSULE PO SCH ×3 (05:45→21:11)
[2019-01-20 06:44] LABS: HEMATOCRIT. 26.1 % (36.0-48.0); HEMOGLOBIN. 8.3 g/dL (12.0-16.0); MEAN CORPUSCULAR HEMOGLOBIN 26.9 pg (28.0-32.0); MEAN CORPUSCULAR VOLUME 85.1 fL (81.0-99.0); MEAN PLATELET VOLUME 9.5 fl (7.4-10.4); PLATELET 271 x1000/uL (130-400); RED BLOOD CELL COUNT 3.07 mill/uL (4.2-5.4); RED CELL DISTRIBUTION WIDTH 20.4 % (11.6-14.6)
[2019-01-20 07:14] LABS: CHLORIDE 105 mEq/L (98-107)
[2019-01-20 08:20] LABS: PLATELET ESTIMATE NORMAL
[2019-01-20] MEDS: LORAZEPAM 2MG/ML CPJ IV PRN (08:38)
[2019-01-20] MEDS: MAGNESIUM OXIDE 400MG TABLET PO SCH ×2 (09:00→16:25)
[2019-01-20] MEDS: PANTOPRAZOLE SODIUM 40 MG/VIAL IV SCH ×2 (09:59→21:10)
[2019-01-20] MEDS: PETROLATUM,WHITE OPHTH OINT 3.5GM BOTHEYE SCH ×2 (09:59→22:50)
[2019-01-20] MEDS: ZINC OXIDE 20% OINT 30GM TOP SCH ×2 (10:02→16:29)
[2019-01-20 15:42] LABS: HEMATOCRIT 27.2 % (36.0-48.0); HEMOGLOBIN 8.6 g/dL (12.0-16.0)
[2019-01-20 15:50] LABS: TOTAL IRON BINDING CAPACITY 166 ug/dL (250-450)
[2019-01-20] MEDS: LACTULOSE 20G/30ML UDC PO SCH (16:23)
[2019-01-20] MEDS: METRONIDAZOLE 500 MG PREMIX 100 ML IV SCH ×2 (16:24→21:11)
[2019-01-20] MEDS: POTASSIUM CHLORIDE 20MEQ/PACKET PO SCH (16:26)
[2019-01-20] MEDS: AMLODIPINE 2.5MG TABLET PO SCH ×2 (16:27→21:14)
[2019-01-20] MEDS: QUETIAPINE FUMARATE 25MG TABLET PO SCH (21:11)
[2019-01-20 22:56] LABS: HEMATOCRIT 27.4 % (36.0-48.0); HEMOGLOBIN 8.7 g/dL (12.0-16.0)
[2019-01-21] VITALS (16 sets, daily range): BP systolic 101–155; BP diastolic 68–95
[2019-01-21] MEDS: IPRATROPIUM/ALBUTEROL 0.5-3(2.5)MG/3ML NEB INH PRN (00:07)
[2019-01-21] MEDS: METOCLOPRAMIDE HCL 10MG/2ML VIAL IV SCH ×5 (00:50→23:59)
[2019-01-21] MEDS: HYDROMORPHONE HCL/PF 2MG/ML CPJ IV PRN ×6 (00:50→22:00)
[2019-01-21] MEDS: IPRATROPIUM BROMIDE (0.02%) 0.5MG/2.5ML NEB HHN SCH ×6 (03:09→23:44)
[2019-01-21 05:26] LABS: HEMATOCRIT 28.3 % (36.0-48.0)
[2019-01-21] MEDS: GABAPENTIN 300MG CAPSULE PO SCH ×3 (06:00→21:55)
[2019-01-21] MEDS: METRONIDAZOLE 500 MG PREMIX 100 ML IV SCH ×3 (06:03→21:54)
[2019-01-21] MEDS: POTASSIUM CHLORIDE 20MEQ/PACKET PO SCH (08:36)
[2019-01-21] MEDS: AMLODIPINE 2.5MG TABLET PO SCH ×2 (08:36→21:58)
[2019-01-21] MEDS: PETROLATUM,WHITE OPHTH OINT 3.5GM BOTHEYE SCH ×2 (08:36→22:24)
[2019-01-21] MEDS: PANTOPRAZOLE SODIUM 40 MG/VIAL IV SCH ×2 (08:36→21:59)
[2019-01-21] MEDS: LACTULOSE 20G/30ML UDC PO SCH (08:36)
[2019-01-21] MEDS: MAGNESIUM OXIDE 400MG TABLET PO SCH ×2 (08:37→17:29)
[2019-01-21] MEDS: ZINC OXIDE 20% OINT 30GM TOP SCH ×2 (08:46→17:31)
[2019-01-21] MEDS: DEXT 5%/0.45% NACL 1000ML 1,000 ML IV SCH ×2 (10:18→21:55)
[2019-01-21] MEDS: IRON SUCROSE COMPLEX 100 MG/5 ML ML IV SCH (14:11)
[2019-01-21 18:55] LABS: HEMATOCRIT 29.7 % (36.0-48.0); HEMOGLOBIN 9.3 g/dL (12.0-16.0)
[2019-01-21] MEDS: QUETIAPINE FUMARATE 25MG TABLET PO SCH (21:59)
[2019-01-21 23:31] LABS: HEMATOCRIT 27.4 % (36.0-48.0); HEMOGLOBIN 8.8 g/dL (12.0-16.0)
[2019-01-22] VITALS (22 sets, daily range): BP systolic 101–148; BP diastolic 65–87
[2019-01-22] MEDS: DIPHENHYDRAMINE 50MG/ML VIAL IV PRN (00:56)
[2019-01-22] MEDS: IPRATROPIUM BROMIDE (0.02%) 0.5MG/2.5ML NEB HHN SCH ×5 (03:57→20:40)
[2019-01-22] MEDS: DEXT 5%/0.45% NACL 1000ML 1,000 ML IV SCH ×2 (05:30→17:36)
[2019-01-22] MEDS: METRONIDAZOLE 500 MG PREMIX 100 ML IV SCH ×3 (06:27→22:18)
[2019-01-22] MEDS: GABAPENTIN 300MG CAPSULE PO SCH ×3 (06:27→22:18)
[2019-01-22] MEDS: METOCLOPRAMIDE HCL 10MG/2ML VIAL IV SCH ×4 (06:27→23:04)
[2019-01-22] MEDS: PANTOPRAZOLE SODIUM 40 MG/VIAL IV SCH ×2 (08:36→21:02)
[2019-01-22] MEDS: LACTULOSE 20G/30ML UDC PO SCH (08:36)
[2019-01-22] MEDS: POTASSIUM CHLORIDE 20MEQ/PACKET PO SCH (08:36)
[2019-01-22] MEDS: HYDROMORPHONE HCL/PF 2MG/ML CPJ IV PRN ×2 (08:37→15:13)
[2019-01-22] MEDS: AMLODIPINE 2.5MG TABLET PO SCH ×2 (08:38→21:03)
[2019-01-22] MEDS: MAGNESIUM OXIDE 400MG TABLET PO SCH ×2 (08:38→17:35)
[2019-01-22] MEDS: ZINC OXIDE 20% OINT 30GM TOP SCH ×2 (08:39→17:36)
[2019-01-22] MEDS: PETROLATUM,WHITE OPHTH OINT 3.5GM BOTHEYE SCH ×2 (08:42→21:13)
[2019-01-22] MEDS: IRON SUCROSE COMPLEX 100 MG/5 ML ML IV SCH (11:51)
[2019-01-22] MEDS: QUETIAPINE FUMARATE 25MG TABLET PO SCH (21:03)
[2019-01-22] MEDS: LORAZEPAM 2MG/ML CPJ IV PRN (22:18)
[2019-01-23] VITALS (12 sets, daily range): BP systolic 101–151; BP diastolic 67–105
[2019-01-23] MEDS: IPRATROPIUM BROMIDE (0.02%) 0.5MG/2.5ML NEB HHN SCH ×6 (00:35→20:07)
[2019-01-23] MEDS: DEXT 5%/0.45% NACL 1000ML 1,000 ML IV SCH ×3 (02:45→23:09)
[2019-01-23] MEDS: METRONIDAZOLE 500 MG PREMIX 100 ML IV SCH ×3 (05:25→23:08)
[2019-01-23] MEDS: GABAPENTIN 300MG CAPSULE PO SCH ×3 (05:30→20:46)
[2019-01-23] MEDS: METOCLOPRAMIDE HCL 10MG/2ML VIAL IV SCH ×4 (05:30→23:14)
[2019-01-23] MEDS: ACETAMINOPHEN 325MG TABLET PO PRN ×2 (06:17→17:09)
[2019-01-23] MEDS: PANTOPRAZOLE SODIUM 40 MG/VIAL IV SCH ×2 (09:08→20:40)
[2019-01-23] MEDS: POTASSIUM CHLORIDE 20MEQ/PACKET PO SCH (09:08)
[2019-01-23] MEDS: AMLODIPINE 2.5MG TABLET PO SCH ×2 (09:08→20:41)
[2019-01-23] MEDS: MAGNESIUM OXIDE 400MG TABLET PO SCH ×2 (09:08→17:53)
[2019-01-23] MEDS: LACTULOSE 20G/30ML UDC PO SCH (09:09)
[2019-01-23] MEDS: PETROLATUM,WHITE OPHTH OINT 3.5GM BOTHEYE SCH ×2 (09:09→23:06)
[2019-01-23] MEDS: ZINC OXIDE 20% OINT 30GM TOP SCH ×2 (09:10→17:53)
[2019-01-23 11:05] LABS: HEMATOCRIT 23.7 % (36.0-48.0); HEMOGLOBIN 7.5 g/dL (12.0-16.0); MEAN CORPUSCULAR HEMOGLOBIN 26.7 pg (28.0-32.0); MEAN CORPUSCULAR VOLUME 84.6 fL (81.0-99.0); PLATELET 244 x1000/uL (130-400); RED CELL DISTRIBUTION WIDTH 20.4 % (11.6-14.6)
[2019-01-23] MEDS: IRON SUCROSE COMPLEX 100 MG/5 ML ML IV SCH (13:06)
[2019-01-23] MEDS: LORAZEPAM 2MG/ML CPJ IV PRN (14:40)
[2019-01-23] MEDS: HYDROMORPHONE HCL/PF 2MG/ML CPJ IV PRN ×2 (16:19→20:37)
[2019-01-23] MEDS: SIMETHICONE 80MG TABLET CHEW PO SCH ×2 (17:58→20:41)
[2019-01-23] MEDS: QUETIAPINE FUMARATE 25MG TABLET PO SCH (20:41)
[2019-01-24] VITALS (13 sets, daily range): BP systolic 107–146; BP diastolic 61–90
[2019-01-24] MEDS: IPRATROPIUM BROMIDE (0.02%) 0.5MG/2.5ML NEB HHN SCH ×6 (00:06→20:30)
[2019-01-24] MEDS: HYDROMORPHONE HCL/PF 2MG/ML CPJ IV PRN ×5 (02:26→20:19)
[2019-01-24] MEDS: LORAZEPAM 2MG/ML CPJ IV PRN (02:27)
[2019-01-24] MEDS: GABAPENTIN 300MG CAPSULE PO SCH ×3 (05:29→21:25)
[2019-01-24] MEDS: METOCLOPRAMIDE HCL 10MG/2ML VIAL IV SCH ×4 (05:29→23:13)
[2019-01-24] MEDS: METRONIDAZOLE 500 MG PREMIX 100 ML IV SCH ×3 (05:30→21:25)
[2019-01-24 07:21] LABS: BASOPHILS % 0.4 % (0.0-2.0); EOSINOPHILS % 1.3 % (0.0-5.0); HEMATOCRIT. 21.4 % (36.0-48.0); MEAN CORPUSCULAR HEMOGLOBIN 26.5 pg (28.0-32.0); MEAN CORPUSCULAR VOLUME 84.3 fL (81.0-99.0); MONOCYTES % 14.5 % (2.0-8.0); NEUTROPHILS % 72.8 % (40.0-76.0); PLATELET 202 x1000/uL (130-400); RED BLOOD CELL COUNT 2.54 mill/uL (4.2-5.4); RED CELL DISTRIBUTION WIDTH 19.6 % (11.6-14.6)
[2019-01-24 07:29] LABS: HEMOGLOBIN. 6.7 g/dL (12.0-16.0)
[2019-01-24 07:54] LABS: CHLORIDE 103 mEq/L (98-107)
[2019-01-24] MEDS: ACETAMINOPHEN 325MG TABLET PO PRN (08:19)
[2019-01-24] MEDS: MAGNESIUM OXIDE 400MG TABLET PO SCH ×2 (08:19→17:47)
[2019-01-24] MEDS: LACTULOSE 20G/30ML UDC PO SCH (08:19)
[2019-01-24] MEDS: PANTOPRAZOLE SODIUM 40 MG/VIAL IV SCH ×2 (08:19→21:24)
[2019-01-24] MEDS: POTASSIUM CHLORIDE 20MEQ/PACKET PO SCH (08:20)
[2019-01-24] MEDS: AMLODIPINE 2.5MG TABLET PO SCH ×2 (08:20→21:24)
[2019-01-24] MEDS: PETROLATUM,WHITE OPHTH OINT 3.5GM BOTHEYE SCH ×2 (08:21→21:26)
[2019-01-24] MEDS: SIMETHICONE 80MG TABLET CHEW PO SCH ×4 (08:22→21:24)
[2019-01-24] MEDS: ZINC OXIDE 20% OINT 30GM TOP SCH ×2 (08:22→17:49)
[2019-01-24] MEDS ORDERED: ACETAMINOPHEN 650MG SUPP PR PRN (09:15)
[2019-01-24 13:51] LABS: HEMATOCRIT 24.2 % (36.0-48.0); HEMOGLOBIN 7.8 g/dL (12.0-16.0)
[2019-01-24] MEDS: DEXT 5%/0.45% NACL 1000ML 1,000 ML IV SCH ×2 (17:20→17:49)
[2019-01-24] MEDS: QUETIAPINE FUMARATE 25MG TABLET PO SCH (21:25)
[2019-01-25] VITALS (12 sets, daily range): BP systolic 101–145; BP diastolic 62–88
[2019-01-25] MEDS: IPRATROPIUM BROMIDE (0.02%) 0.5MG/2.5ML NEB HHN SCH ×5 (00:47→20:09)
[2019-01-25] MEDS: HYDROMORPHONE HCL/PF 2MG/ML CPJ IV PRN ×5 (02:37→19:37)
[2019-01-25] MEDS: DEXT 5%/0.45% NACL 1000ML 1,000 ML IV SCH ×2 (02:42→14:25)
[2019-01-25] MEDS: METRONIDAZOLE 500 MG PREMIX 100 ML IV SCH ×3 (05:24→21:09)
[2019-01-25] MEDS: GABAPENTIN 300MG CAPSULE PO SCH ×3 (05:25→21:09)
[2019-01-25] MEDS: METOCLOPRAMIDE HCL 10MG/2ML VIAL IV SCH ×3 (05:25→18:09)
[2019-01-25 07:13] LABS: HEMATOCRIT. 23.9 % (36.0-48.0); HEMOGLOBIN. 7.7 g/dL (12.0-16.0); MEAN CORPUSCULAR HEMOGLOBIN 27.4 pg (28.0-32.0); MEAN CORPUSCULAR VOLUME 84.5 fL (81.0-99.0); MEAN PLATELET VOLUME 9.9 fl (7.4-10.4); PLATELET 213 x1000/uL (130-400); RED BLOOD CELL COUNT 2.83 mill/uL (4.2-5.4); RED CELL DISTRIBUTION WIDTH 19.9 % (11.6-14.6)
[2019-01-25 07:22] LABS: CHLORIDE 102 mEq/L (98-107)
[2019-01-25] MEDS ORDERED: POTASSIUM CHLORIDE 20MEQ/PACKET PO NR (08:15)
[2019-01-25] MEDS: SIMETHICONE 80MG TABLET CHEW PO SCH ×4 (09:15→21:08)
[2019-01-25] MEDS: PANTOPRAZOLE SODIUM 40 MG/VIAL IV SCH (09:15)
[2019-01-25] MEDS: AMLODIPINE 2.5MG TABLET PO SCH ×2 (09:15→21:08)
[2019-01-25] MEDS: MAGNESIUM OXIDE 400MG TABLET PO SCH ×2 (09:15→18:09)
[2019-01-25] MEDS: LACTULOSE 20G/30ML UDC PO SCH (09:15)
[2019-01-25] MEDS: POTASSIUM CHLORIDE 20MEQ/PACKET PO SCH (09:18)
[2019-01-25] MEDS: PETROLATUM,WHITE OPHTH OINT 3.5GM BOTHEYE SCH ×2 (09:22→21:10)
[2019-01-25] MEDS: ZINC OXIDE 20% OINT 30GM TOP SCH ×2 (09:22→18:09)
[2019-01-25 11:12] LABS: PHOSPHORUS 0.9 mg/dL (2.5-4.9)
[2019-01-25 12:02] LABS: PLATELET ESTIMATE NORMAL
[2019-01-25] MEDS: LORAZEPAM 2MG/ML CPJ IV PRN ×2 (13:00→22:21)
[2019-01-25] MEDS ORDERED: SODIUM PHOS,M-BASIC-D-BASIC 15 MM in DEXT 5% WATER 245 ML IV NR (13:00)
[2019-01-25] MEDS ORDERED: MAGNESIUM 2 G PREMIX 50 ML IV NR (13:00)
[2019-01-25] MEDS: QUETIAPINE FUMARATE 25MG TABLET PO SCH (21:09)
[2019-01-26] VITALS (12 sets, daily range): BP systolic 117–160; BP diastolic 67–90
[2019-01-26] MEDS: IPRATROPIUM BROMIDE (0.02%) 0.5MG/2.5ML NEB HHN SCH ×4 (00:36→21:12)
[2019-01-26] MEDS: METOCLOPRAMIDE HCL 10MG/2ML VIAL IV SCH ×4 (01:34→17:05)
[2019-01-26] MEDS: DEXT 5%/0.45% NACL 1000ML 1,000 ML IV SCH ×3 (01:35→21:13)
[2019-01-26] MEDS: HYDROMORPHONE HCL/PF 2MG/ML CPJ IV PRN ×4 (03:34→18:54)
[2019-01-26] MEDS: GABAPENTIN 300MG CAPSULE PO SCH ×3 (05:20→21:00)
[2019-01-26] MEDS: METRONIDAZOLE 500 MG PREMIX 100 ML IV SCH ×3 (05:20→21:00)
[2019-01-26 06:22] LABS: HEMATOCRIT. 24.8 % (36.0-48.0); MEAN CORPUSCULAR HEMOGLOBIN 27.5 pg (28.0-32.0); MEAN CORPUSCULAR VOLUME 85.1 fL (81.0-99.0); MEAN PLATELET VOLUME 9.6 fl (7.4-10.4); PLATELET 241 x1000/uL (130-400); RED BLOOD CELL COUNT 2.91 mill/uL (4.2-5.4); RED CELL DISTRIBUTION WIDTH 20.7 % (11.6-14.6)
[2019-01-26 06:35] LABS: CHLORIDE 105 mEq/L (98-107)
[2019-01-26 06:41] LABS: PHOSPHORUS 1.1 mg/dL (2.5-4.9)
[2019-01-26] MEDS: LACTULOSE 20G/30ML UDC PO SCH (08:05)
[2019-01-26] MEDS: AMLODIPINE 2.5MG TABLET PO SCH ×2 (08:06→20:59)
[2019-01-26] MEDS: SIMETHICONE 80MG TABLET CHEW PO SCH ×4 (08:06→20:59)
[2019-01-26] MEDS: POTASSIUM CHLORIDE 20MEQ/PACKET PO SCH (08:06)
[2019-01-26] MEDS: ZINC OXIDE 20% OINT 30GM TOP SCH ×2 (08:09→17:04)
[2019-01-26] MEDS: PETROLATUM,WHITE OPHTH OINT 3.5GM BOTHEYE SCH ×2 (08:10→20:59)
[2019-01-26] MEDS: MAGNESIUM OXIDE 400MG TABLET PO SCH ×2 (08:12→17:05)
[2019-01-26 10:58] LABS: NUCLEATED RED BLOOD CELLS 1 /100 WBC
[2019-01-26 11:00] LABS: PLATELET ESTIMATE NORMAL
[2019-01-26] MEDS: LORAZEPAM 2MG/ML CPJ IV PRN (11:01)
[2019-01-26] MEDS ORDERED: DIATR MEGLU/DIATRIZOATE SOLN 30ML ONE (12:20)
[2019-01-26] MEDS ORDERED: MAGNESIUM 2 G PREMIX 50 ML IV NR (13:00)
[2019-01-26 13:10] LABS: CA 27.29 11.4 U/mL (0.0-38.6)
[2019-01-26] MEDS ORDERED: POTASSIUM PHOS,M-BASIC-D-BASIC 20 MMOL in DEXT 5% WATER 243.3333 ML IV NR (14:00)
[2019-01-26 17:14] LABS: PHOSPHORUS 0.6 mg/dL (2.5-4.9)
[2019-01-26] MEDS: QUETIAPINE FUMARATE 25MG TABLET PO SCH (21:00)
[2019-01-27] VITALS (12 sets, daily range): BP systolic 102–161; BP diastolic 51–105
[2019-01-27] MEDS: IPRATROPIUM BROMIDE (0.02%) 0.5MG/2.5ML NEB HHN SCH ×6 (01:02→19:43)
[2019-01-27] MEDS: METOCLOPRAMIDE HCL 10MG/2ML VIAL IV SCH ×4 (01:23→17:15)
[2019-01-27] MEDS: HYDROMORPHONE HCL/PF 2MG/ML CPJ IV PRN ×5 (01:23→21:33)
[2019-01-27] MEDS: LORAZEPAM 2MG/ML CPJ IV PRN (03:49)
[2019-01-27] MEDS: GABAPENTIN 300MG CAPSULE PO SCH ×4 (05:34→22:00)
[2019-01-27] MEDS: METRONIDAZOLE 500 MG PREMIX 100 ML IV SCH ×2 (05:35→14:00)
[2019-01-27] MEDS: DEXT 5%/0.45% NACL 1000ML 1,000 ML IV SCH ×2 (05:35→15:01)
[2019-01-27 05:39] LABS: HEMOGLOBIN. 7.2 g/dL (12.0-16.0); MEAN CORPUSCULAR HEMOGLOBIN 27.9 pg (28.0-32.0); MEAN CORPUSCULAR VOLUME 85.5 fL (81.0-99.0); PLATELET 205 x1000/uL (130-400); RED BLOOD CELL COUNT 2.58 mill/uL (4.2-5.4); RED CELL DISTRIBUTION WIDTH 20.7 % (11.6-14.6)
[2019-01-27 05:55] LABS: CHLORIDE 105 mEq/L (98-107)
[2019-01-27] MEDS: LACTULOSE 20G/30ML UDC PO SCH ×2 (08:22→08:33)
[2019-01-27] MEDS: POTASSIUM CHLORIDE 20MEQ/PACKET PO SCH (08:23)
[2019-01-27] MEDS: SIMETHICONE 80MG TABLET CHEW PO SCH ×4 (08:24→21:00)
[2019-01-27] MEDS: MAGNESIUM OXIDE 400MG TABLET PO SCH ×2 (08:24→16:37)
[2019-01-27] MEDS: AMLODIPINE 2.5MG TABLET PO SCH ×2 (08:25→21:00)
[2019-01-27] MEDS: PETROLATUM,WHITE OPHTH OINT 3.5GM BOTHEYE SCH ×2 (08:25→22:15)
[2019-01-27] MEDS: ZINC OXIDE 20% OINT 30GM TOP SCH ×2 (08:25→17:16)
[2019-01-27 08:35] LABS: PHOSPHORUS 1.1 mg/dL (2.5-4.9)
[2019-01-27 08:44] LABS: BG BASE EXCESS 4.9 mmol/L (-2.0-2.0); BG CARBOXYHEMOGLOBIN 1.2 % (0.5-1.5); BG DEOXYHEMOGLOBIN 1.2 % (0.0-5.0); BG FRACTION INSPIRED OXYGEN 35; BG HCO3 ACT 29.6 mmol/L (22.0-26.0); BG METHEMOGLOBIN 0.1 % (0.0-1.5); BG OXYGEN SATURATION 98.8 % (92.0-98.5); BG OXYHEMOGLOBIN 97.5 % (94.0-97.0); BG PCO2 44.8 mmHg (35.0-45.0); BG PH 7.438 (7.350-7.450); BG PO2 112.7 mmHg (75.0-100.0); BG SAMPLE SITE RIGHT RADIAL; BG TIDAL VOLUME(mL) 450 mL; BG TOTAL HEMOGLOBIN 8.5 g/dL (12.0-18.0); BG VENT MODE VENT - A/C; BG VENT RATE 12 set
[2019-01-27 10:19] LABS: PLATELET ESTIMATE NORMAL
[2019-01-27] MEDS ORDERED: POTASSIUM PHOS,M-BASIC-D-BASIC 30 MMOL in DEXT 5% WATER 500 ML IV SCH (10:30)
[2019-01-27] MEDS ORDERED: DIATR MEGLU/DIATRIZOATE SOLN 30ML PO SCH (11:30)
[2019-01-27] MEDS: FERROUS SULFATE 325MG TABLET PO SCH ×2 (12:49→17:10)
[2019-01-27] MEDS ORDERED: METRONIDAZOLE 500 MG PREMIX 100 ML IV NR (16:30)
[2019-01-27] MEDS: QUETIAPINE FUMARATE 25MG TABLET PO SCH (21:00)
[2019-01-28] VITALS (12 sets, daily range): BP systolic 115–148; BP diastolic 66–96
[2019-01-28] MEDS: IPRATROPIUM BROMIDE (0.02%) 0.5MG/2.5ML NEB HHN SCH ×6 (00:24→20:15)
[2019-01-28] MEDS: METOCLOPRAMIDE HCL 10MG/2ML VIAL IV SCH ×4 (01:04→18:04)
[2019-01-28] MEDS: DEXT 5%/0.45% NACL 1000ML 1,000 ML IV SCH ×3 (01:30→21:30)
[2019-01-28] MEDS: LORAZEPAM 2MG/ML CPJ IV PRN (01:41)
[2019-01-28] MEDS: GABAPENTIN 300MG CAPSULE PO SCH ×3 (06:00→22:00)
[2019-01-28] MEDS: HYDROMORPHONE HCL/PF 2MG/ML CPJ IV PRN ×3 (06:04→21:16)
[2019-01-28 07:00] LABS: HEMOGLOBIN. 8.1 g/dL (12.0-16.0); MEAN CORPUSCULAR HEMOGLOBIN 27.5 pg (28.0-32.0); MEAN CORPUSCULAR VOLUME 84.5 fL (81.0-99.0); PLATELET 269 x1000/uL (130-400); RED BLOOD CELL COUNT 2.96 mill/uL (4.2-5.4); RED CELL DISTRIBUTION WIDTH 21.6 % (11.6-14.6)
[2019-01-28 07:06] LABS: INR 1.3; PROTHROMBIN TIME 13.2 sec (9.6-11.0)
[2019-01-28 07:31] LABS: CHLORIDE 100 mEq/L (98-107)
[2019-01-28 07:40] LABS: PHOSPHORUS 2.3 mg/dL (2.5-4.9)
[2019-01-28] MEDS: FERROUS SULFATE 325MG TABLET PO SCH ×3 (08:00→18:00)
[2019-01-28] MEDS: SIMETHICONE 80MG TABLET CHEW PO SCH ×4 (08:18→21:00)
[2019-01-28] MEDS: MAGNESIUM OXIDE 400MG TABLET PO SCH ×2 (08:18→17:00)
[2019-01-28] MEDS: POTASSIUM CHLORIDE 20MEQ/PACKET PO SCH (08:19)
[2019-01-28] MEDS: AMLODIPINE 2.5MG TABLET PO SCH ×2 (08:19→21:00)
[2019-01-28] MEDS: ZINC OXIDE 20% OINT 30GM TOP SCH ×2 (08:55→18:05)
[2019-01-28] MEDS: PETROLATUM,WHITE OPHTH OINT 3.5GM BOTHEYE SCH ×2 (08:55→21:00)
[2019-01-28] MEDS ORDERED: SODIUM PHOS,M-BASIC-D-BASIC 20 MM in DEXT 5% WATER 243.3333 ML IV SCH (11:00)
[2019-01-28] MEDS ORDERED: MAGNESIUM 4 G PREMIX 100 ML IV NR (11:30)
[2019-01-28] MEDS ORDERED: CEFAZOLIN 1000MG PREMIX 50 ML IV NR (13:00)
[2019-01-28 13:17] LABS: PLATELET ESTIMATE NORMAL
[2019-01-28] MEDS ORDERED: SIMETHICONE 40 MG/0.6 ML 30ML ONE (15:06)
[2019-01-28] MEDS ORDERED: FENTANYL CITRATE/PF 50MCG/ML 2ML VIAL ONE (15:06)
[2019-01-28] MEDS ORDERED: MIDAZOLAM HCL 5 MG/5 ML VIAL ONE (15:06)
[2019-01-28] MEDS ORDERED: MIDAZOLAM HCL 5 MG/5 ML VIAL IV PRN (15:56)
[2019-01-28] MEDS ORDERED: FENTANYL CITRATE/PF 50MCG/ML 2ML VIAL IV PRN (15:57)
[2019-01-28] MEDS ORDERED: HYDROMORPHONE HCL/PF 2MG/ML CPJ IV PRN (17:00)
[2019-01-28] MEDS: QUETIAPINE FUMARATE 25MG TABLET PO SCH (21:00)
[2019-01-29] VITALS: BP 110/72
[2019-01-29] MEDS: IPRATROPIUM BROMIDE (0.02%) 0.5MG/2.5ML NEB HHN SCH ×4 (00:20→12:01)
[2019-01-29] MEDS: METOCLOPRAMIDE HCL 10MG/2ML VIAL IV SCH ×3 (00:57→13:06)
[2019-01-29] MEDS: HYDROMORPHONE HCL/PF 2MG/ML CPJ IV PRN ×3 (01:36→13:08)
[2019-01-29 02:00] VITALS: BP 122/84
[2019-01-29 04:00] VITALS: BP 90/62
[2019-01-29 06:00] VITALS: BP 141/88
[2019-01-29] MEDS: GABAPENTIN 300MG CAPSULE PO SCH ×2 (06:00→13:10)
[2019-01-29 06:56] LABS: HEMATOCRIT. 27.2 % (36.0-48.0); HEMOGLOBIN. 8.7 g/dL (12.0-16.0); MEAN CORPUSCULAR HEMOGLOBIN 27.4 pg (28.0-32.0); MEAN CORPUSCULAR VOLUME 85.9 fL (81.0-99.0); MEAN PLATELET VOLUME 9.9 fl (7.4-10.4); PLATELET 243 x1000/uL (130-400); RED BLOOD CELL COUNT 3.16 mill/uL (4.2-5.4); RED CELL DISTRIBUTION WIDTH 22.4 % (11.6-14.6)
[2019-01-29] MEDS: DEXT 5%/0.45% NACL 1000ML 1,000 ML IV SCH (07:30)
[2019-01-29 07:31] LABS: CHLORIDE 98 mEq/L (98-107)
[2019-01-29] MEDS: AMLODIPINE 2.5MG TABLET PO SCH (09:00)
[2019-01-29] MEDS: FERROUS SULFATE 325MG TABLET PO SCH ×2 (09:32→13:06)
[2019-01-29] MEDS: POTASSIUM CHLORIDE 20MEQ/PACKET PO SCH (09:32)
[2019-01-29] MEDS: MAGNESIUM OXIDE 400MG TABLET PO SCH (09:33)
[2019-01-29] MEDS: ZINC OXIDE 20% OINT 30GM TOP SCH (09:34)
[2019-01-29] MEDS: PETROLATUM,WHITE OPHTH OINT 3.5GM BOTHEYE SCH (09:36)
[2019-01-29] MEDS: SIMETHICONE 80MG TABLET CHEW PO SCH (13:06)
[2019-01-29 13:57] VITALS: BP 146/86
[2019-01-29 17:13] LABS: PLATELET ESTIMATE NORMAL
== END 2019-01-29 15:00 | DRG 4 ==
LOC: ER 13:33 → MICUNO 15:23 → EDBEDREQ 15:26 → EDBEDREQSVC 15:26 → EDBEDREQTM 15:26 → ENRESERV 23:11 → 5EST 01-09 03:42
PROVIDERS: ADMIT Internal Medicine; ATTEND Internal Medicine
PROC: 5A1955Z Respiratory Ventilation, Greater than 96 Consecutive Hours (ICD-10-PCS; principal; 2018-12-27)
PROC: 0BH17EZ Insertion of Endotracheal Airway into Trachea, Via Natural or Artificial Opening (ICD-10-PCS; 2018-12-27)
PROC: 06HY33Z Insertion of Infusion Device into Lower Vein, Percutaneous Approach (ICD-10-PCS; 2018-12-27)
PROC: 5A09357 Assistance with Respiratory Ventilation, Less than 24 Consecutive Hours, Continuous Positive Airway Pressure (ICD-10-PCS; 2018-12-27)
PROC: 0B110F4 Bypass Trachea to Cutaneous with Tracheostomy Device, Open Approach (ICD-10-PCS; 2019-01-07)
PROC: 0GBJ0ZZ Excision of Thyroid Gland Isthmus, Open Approach (ICD-10-PCS; 2019-01-07)
PROC: 0DH63UZ Insertion of Feeding Device into Stomach, Percutaneous Approach (ICD-10-PCS; 2019-01-09)
PROC: 30233N1 Transfusion of Nonautologous Red Blood Cells into Peripheral Vein, Percutaneous Approach (ICD-10-PCS; 2019-01-13)
PROC: 0D20XUZ Change Feeding Device in Upper Intestinal Tract, External Approach (ICD-10-PCS; 2019-01-28)
DX: A41.9 Sepsis, unspecified organism (principal); N17.0 Acute kidney failure with tubular necrosis; R65.21 Severe sepsis with septic shock; E43 Unspecified severe protein-calorie malnutrition; J69.0 Pneumonitis due to inhalation of food and vomit; G92 Toxic encephalopathy; J96.21 Acute and chronic respiratory failure with hypoxia; J90 Pleural effusion, not elsewhere classified; Z99.81 Dependence on supplemental oxygen; E87.2 Acidosis; D69.6 Thrombocytopenia, unspecified; B02.9 Zoster without complications; J44.1 Chronic obstructive pulmonary disease with (acute) exacerbation; E87.1 Hypo-osmolality and hyponatremia; I10 Essential (primary) hypertension; I25.10 Atherosclerotic heart disease of native coronary artery without angina pectoris; D64.9 Anemia, unspecified; B19.20 Unspecified viral hepatitis C without hepatic coma; D50.0 Iron deficiency anemia secondary to blood loss (chronic); D63.8 Anemia in other chronic diseases classified elsewhere; E87.6 Hypokalemia; G62.9 Polyneuropathy, unspecified; I27.20 Pulmonary hypertension, unspecified; I48.0 Paroxysmal atrial fibrillation; I49.3 Ventricular premature depolarization; J96.22 Acute and chronic respiratory failure with hypercapnia; K94.23 Gastrostomy malfunction; Y83.8 Other surgical procedures as the cause of abnormal reaction of the patient, or of later complication, without mention of misadventure at the time of the procedure; R33.9 Retention of urine, unspecified; B37.3 Candidiasis of vulva and vagina; K52.9 Noninfective gastroenteritis and colitis, unspecified; K74.60 Unspecified cirrhosis of liver; K92.2 Gastrointestinal hemorrhage, unspecified; N92.0 Excessive and frequent menstruation with regular cycle; R13.10 Dysphagia, unspecified; Z66 Do not resuscitate; Z78.1 Physical restraint status; Z78.9 Other specified health status; Z79.51 Long term (current) use of inhaled steroids; Z79.82 Long term (current) use of aspirin; Z79.899 Other long term (current) drug therapy; Z82.49 Family history of ischemic heart disease and other diseases of the circulatory system; Z87.11 Personal history of peptic ulcer disease; Z87.891 Personal history of nicotine dependence; Z99.11 Dependence on respirator [ventilator] status; Z68.20 Body mass index [BMI] 20.0-20.9, adult
CPT/HCPCS: 31500; 36415; 36556; 36600; 51702; 71045; 71250; 74018; 74176; 76700; 76856; 78278; 80048; 80061; 80202; 80305; 80320; 82105; 82140; 82270; 82375; 82378; 82533; 82550; 82553; 82728; 82805; 82962; 83540; 83550; 83605; 83735; 83880; 84100; 84145; 84439; 84443; 84478; 84484; 85014; 85018; 85027; 85379; 85384; 86300; 86301; 86304; 86850; 86900; 86920; 87070; 87106; 87389; 87804; 93005; 93306; 93308; 93970; 94003; 94640; 96365; 96366; 96375; 96376; 97110; 97163; 97166; 97530; 99291; A6261; A9560; C9113; J0133; J0330; J0690; J0692; J1170; J1200; J1642; J1644; J1720; J1885; J2060; J2248; J2250; J2270; J2354; J2370; J2405; J2543; J2704; J2765; J3010; J3370; J3411; J3475; J3480; J3490; J7030; J7040; J7042; J7050; J7060; J7608; J7620; P9016; Q9963; Q9967; G0480

== ENCOUNTER 2019-03-20 15:53 | Inpatient (IN) | payer MEDICARE, MEDICAID ==
[~2019-03-20] VITALS: Ht 162.6 cm; Wt 52.2 kg
[~2019-03-20 15:53] MED LIST changes: +ACYC400T5 PO; +ASPI-1393 PO; +BETH25TA PO; +P20 MT; +PANT40TA4 PO; +TERA2CAP4 PO
[2019-03-20] MEDS ORDERED: SODIUM CHLORIDE 0.9% 1000ML BAG (SEPSIS BOLUS) IV ONE (16:15)
[2019-03-20] MEDS ORDERED: PIPERACILLIN/TAZ 3.375G PREMIX 50 ML IV ONE (16:15)
[2019-03-20 16:51] LABS: HEMATOCRIT. 26.8 % (36.0-48.0); HEMOGLOBIN. 8.7 g/dL (12.0-16.0); MEAN CORPUSCULAR HEMOGLOBIN 28.1 pg (28.0-32.0); MEAN CORPUSCULAR VOLUME 86.7 fL (81.0-99.0); MEAN PLATELET VOLUME 10.3 fl (7.4-10.4); PLATELET 171 x1000/uL (130-400); RED BLOOD CELL COUNT 3.09 mill/uL (4.2-5.4); RED CELL DISTRIBUTION WIDTH 15.3 % (11.6-14.6)
[2019-03-20 16:52] LABS: CHLORIDE 97 mEq/L (98-107)
[2019-03-20 16:55] LABS: INR 1.2; PROTHROMBIN TIME 11.8 sec (9.6-11.0)
[2019-03-20 17:15] LABS: PLATELET ESTIMATE NORMAL
[2019-03-20] MEDS ORDERED: MORPHINE SULFATE 4 MG/ML CPJ (NOT FOR IM USE) IV STA (19:30)
[2019-03-20] MEDS ORDERED: ONDANSETRON HCL 4MG/2ML INJ IV STA (19:30)
[2019-03-20 21:10] LABS: CLARITY URINE TURBID (CLEAR); COLOR URINE DARK YELLOW (YELLOW); KETONES URINE NEGATIVE (NEGATIVE); LEUKOCYTE ESTERASE URINE 3+ (NEGATIVE); NITRITE URINE POSITIVE (NEGATIVE); OCCULT BLOOD URINE 3+ (NEGATIVE); PH URINE 8.5 (4.5-8.0); PROTEIN URINE NEGATIVE (NEGATIVE); SPECIFIC GRAVITY URINE 1.009 (1.005-1.030); UROBILINOGEN URINE 0.2 E.U./dL (0.2-1.0)
[2019-03-20 21:30] VITALS: BP 125/70
[2019-03-20 23:50] VITALS: BP 117/80
[2019-03-21] VITALS (11 sets, daily range): BP systolic 100–147; BP diastolic 63–90
[2019-03-21] MEDS: MORPHINE SULFATE 4 MG/ML CPJ (NOT FOR IM USE) IV PRN ×2 (00:15→04:46)
[2019-03-21] MEDS: DEXT 5%/0.45% NACL 1000ML 1,000 ML IV SCH ×2 (00:24→16:12)
[2019-03-21] MEDS ORDERED: VANCOMYCIN 750 MG PREMIX 150 ML IV SCH ×2 (02:00→18:00)
[2019-03-21] MEDS: PIPERACILLIN/TAZ 3.375G PREMIX 50 ML IV SCH ×4 (02:08→22:02)
[2019-03-21 07:09] LABS: HEMATOCRIT. 24.6 % (36.0-48.0); HEMOGLOBIN. 7.9 g/dL (12.0-16.0); MEAN CORPUSCULAR HEMOGLOBIN 28.1 pg (28.0-32.0); MEAN CORPUSCULAR VOLUME 87.4 fL (81.0-99.0); MEAN PLATELET VOLUME 10.2 fl (7.4-10.4); PLATELET 165 x1000/uL (130-400); RED BLOOD CELL COUNT 2.81 mill/uL (4.2-5.4); RED CELL DISTRIBUTION WIDTH 15.3 % (11.6-14.6)
[2019-03-21 07:32] LABS: CHLORIDE 101 mEq/L (98-107)
[2019-03-21] MEDS: FAMOTIDINE 20MG/2ML VIAL IV SCH (08:28)
[2019-03-21] MEDS: ENOXAPARIN 40MG/0.4ML SYR SUBCUT SCH ×2 (08:29→09:00)
[2019-03-21] MEDS: HYDROMORPHONE HCL/PF 2MG/ML CPJ IV PRN ×4 (10:26→23:29)
[2019-03-21] MEDS ORDERED: GABAPENTIN SOLN 50MG/1ML UDC GT SCH (11:00)
[2019-03-21 11:29] LABS: BG BASE EXCESS 4.4 mmol/L (-2.0-2.0); BG CARBOXYHEMOGLOBIN 0.4 % (0.5-1.5); BG DEOXYHEMOGLOBIN 9.7 % (0.0-5.0); BG FRACTION INSPIRED OXYGEN 40; BG HCO3 ACT 32.1 mmol/L (22.0-26.0); BG METHEMOGLOBIN 0.1 % (0.0-1.5); BG OXYGEN SATURATION 90.3 % (92.0-98.5); BG OXYHEMOGLOBIN 89.8 % (94.0-97.0); BG PCO2 69.3 mmHg (35.0-45.0); BG PH 7.284 (7.350-7.450); BG PO2 64.4 mmHg (75.0-100.0); BG PRESSURE SUPPORT 12; BG SAMPLE SITE RIGHT RADIAL; BG TIDAL VOLUME(mL) 450 mL; BG TOTAL HEMOGLOBIN 8.7 g/dL (12.0-18.0); BG VENT MODE VENT - SIMV; BG VENT RATE 6 set
[2019-03-21] MEDS ORDERED: IPRATROPIUM/ALBUTEROL 0.5-3(2.5)MG/3ML NEB HHN PRN (12:15)
[2019-03-21] MEDS: GABAPENTIN SOLN 50MG/1ML UDC GT SCH ×2 (14:55→23:29)
[2019-03-21] MEDS: BUDESONIDE 0.5MG/2ML NEB HHN SCH ×2 (16:20→20:33)
[2019-03-21] MEDS: IPRATROPIUM/ALBUTEROL 0.5-3(2.5)MG/3ML NEB HHN SCH ×2 (16:20→20:32)
[2019-03-22] VITALS (12 sets, daily range): BP systolic 96–123; BP diastolic 58–74
[2019-03-22] MEDS: IPRATROPIUM/ALBUTEROL 0.5-3(2.5)MG/3ML NEB HHN SCH ×6 (00:21→20:14)
[2019-03-22] MEDS: HYDROMORPHONE HCL/PF 2MG/ML CPJ IV PRN ×5 (03:21→22:38)
[2019-03-22 04:43] LABS: PLATELET ESTIMATE NORMAL
[2019-03-22] MEDS: GABAPENTIN SOLN 50MG/1ML UDC GT SCH ×3 (06:16→21:55)
[2019-03-22] MEDS: PIPERACILLIN/TAZ 3.375G PREMIX 50 ML IV SCH ×3 (06:16→21:56)
[2019-03-22] MEDS: BUDESONIDE 0.5MG/2ML NEB HHN SCH ×2 (08:23→20:14)
[2019-03-22] MEDS: ENOXAPARIN 40MG/0.4ML SYR SUBCUT SCH (08:31)
[2019-03-22] MEDS: FAMOTIDINE 20MG/2ML VIAL IV SCH (08:40)
[2019-03-22] MEDS: DEXT 5%/0.45% NACL 1000ML 1,000 ML IV SCH (08:40)
[2019-03-22 09:28] LABS: BG BASE EXCESS 5.5 mmol/L (-2.0-2.0); BG CARBOXYHEMOGLOBIN 0.1 % (0.5-1.5); BG DEOXYHEMOGLOBIN 0.8 % (0.0-5.0); BG FRACTION INSPIRED OXYGEN 50; BG HCO3 ACT 31.7 mmol/L (22.0-26.0); BG METHEMOGLOBIN 0.3 % (0.0-1.5); BG OXYGEN SATURATION 99.2 % (92.0-98.5); BG OXYHEMOGLOBIN 98.8 % (94.0-97.0); BG PCO2 56.8 mmHg (35.0-45.0); BG PH 7.365 (7.350-7.450); BG PO2 191.9 mmHg (75.0-100.0); BG PRESSURE SUPPORT 14; BG SAMPLE SITE RIGHT BRACHIAL; BG TIDAL VOLUME(mL) 500 mL; BG TOTAL HEMOGLOBIN 8.2 g/dL (12.0-18.0); BG VENT MODE VENT - SIMV; BG VENT RATE 10 set
[2019-03-22] MEDS ORDERED: VANCOMYCIN 750 MG PREMIX 150 ML IV SCH (13:00)
[2019-03-22] MEDS: VANCOMYCIN 750 MG PREMIX 150 ML IV SCH (14:06)
[2019-03-23] VITALS (12 sets, daily range): BP systolic 103–129; BP diastolic 61–89
[2019-03-23] MEDS: IPRATROPIUM/ALBUTEROL 0.5-3(2.5)MG/3ML NEB HHN SCH ×6 (00:21→20:46)
[2019-03-23] MEDS: HYDROMORPHONE HCL/PF 2MG/ML CPJ IV PRN ×5 (03:45→21:35)
[2019-03-23] MEDS: DEXT 5%/0.45% NACL 1000ML 1,000 ML IV SCH ×2 (06:05→18:22)
[2019-03-23] MEDS: GABAPENTIN SOLN 50MG/1ML UDC GT SCH ×3 (06:09→21:35)
[2019-03-23] MEDS: PIPERACILLIN/TAZ 3.375G PREMIX 50 ML IV SCH ×3 (06:09→21:36)
[2019-03-23 08:20] LABS: CHLORIDE 103 mEq/L (98-107)
[2019-03-23] MEDS: FAMOTIDINE 20MG/2ML VIAL IV SCH (08:44)
[2019-03-23] MEDS: VANCOMYCIN 750 MG PREMIX 150 ML IV SCH (08:46)
[2019-03-23] MEDS: ENOXAPARIN 40MG/0.4ML SYR SUBCUT SCH (08:47)
[2019-03-23] MEDS: BUDESONIDE 0.5MG/2ML NEB HHN SCH (12:36)
[2019-03-24] VITALS (11 sets, daily range): BP systolic 97–134; BP diastolic 44–77
[2019-03-24] MEDS: IPRATROPIUM/ALBUTEROL 0.5-3(2.5)MG/3ML NEB HHN SCH ×6 (00:36→20:01)
[2019-03-24] MEDS: HYDROMORPHONE HCL/PF 2MG/ML CPJ IV PRN ×6 (02:33→20:16)
[2019-03-24] MEDS ORDERED: VANCOMYCIN 1 G PREMIX 200 ML IV SCH (06:00)
[2019-03-24] MEDS: PIPERACILLIN/TAZ 3.375G PREMIX 50 ML IV SCH ×3 (06:11→22:28)
[2019-03-24] MEDS: GABAPENTIN SOLN 50MG/1ML UDC GT SCH ×3 (06:11→22:05)
[2019-03-24] MEDS: DEXT 5%/0.45% NACL 1000ML 1,000 ML IV SCH (06:12)
[2019-03-24] MEDS: BUDESONIDE 0.5MG/2ML NEB HHN SCH ×2 (08:34→19:59)
[2019-03-24] MEDS: FAMOTIDINE 20MG/2ML VIAL IV SCH (09:39)
[2019-03-24] MEDS: ENOXAPARIN 40MG/0.4ML SYR SUBCUT SCH (09:39)
[2019-03-25] VITALS (12 sets, daily range): BP systolic 115–146; BP diastolic 58–108
[2019-03-25] MEDS: IPRATROPIUM/ALBUTEROL 0.5-3(2.5)MG/3ML NEB HHN SCH ×6 (00:13→20:40)
[2019-03-25] MEDS: HYDROMORPHONE HCL/PF 2MG/ML CPJ IV PRN ×7 (00:31→23:32)
[2019-03-25] MEDS: DEXT 5%/0.45% NACL 1000ML 1,000 ML IV SCH (03:33)
[2019-03-25] MEDS: GABAPENTIN SOLN 50MG/1ML UDC GT SCH ×3 (05:31→21:12)
[2019-03-25] MEDS: PIPERACILLIN/TAZ 3.375G PREMIX 50 ML IV SCH ×3 (05:31→21:13)
[2019-03-25] MEDS: FAMOTIDINE 20MG/2ML VIAL IV SCH (08:18)
[2019-03-25] MEDS: ENOXAPARIN 40MG/0.4ML SYR SUBCUT SCH (08:18)
[2019-03-25] MEDS: DOCUSATE SODIUM SUGAR FREE 100MG/10ML UDC NG SCH (12:15)
[2019-03-25 12:40] LABS: HEMATOCRIT. 26.5 % (36.0-48.0); HEMOGLOBIN. 8.5 g/dL (12.0-16.0); MEAN CORPUSCULAR HEMOGLOBIN 27.9 pg (28.0-32.0); MEAN PLATELET VOLUME 9.6 fl (7.4-10.4); PLATELET 213 x1000/uL (130-400); RED BLOOD CELL COUNT 3.04 mill/uL (4.2-5.4); RED CELL DISTRIBUTION WIDTH 15.1 % (11.6-14.6)
[2019-03-25 12:51] LABS: CHLORIDE 102 mEq/L (98-107)
[2019-03-25] MEDS: FERROUS SULFATE 300MG/5ML UDC PO SCH ×2 (13:35→18:00)
[2019-03-25 20:36] LABS: PLATELET ESTIMATE NORMAL
[2019-03-26] VITALS (13 sets, daily range): BP systolic 99–145; BP diastolic 62–98
[2019-03-26] MEDS: IPRATROPIUM/ALBUTEROL 0.5-3(2.5)MG/3ML NEB HHN SCH ×6 (01:00→20:14)
[2019-03-26] MEDS: GABAPENTIN SOLN 50MG/1ML UDC GT SCH ×3 (05:11→20:44)
[2019-03-26] MEDS: PIPERACILLIN/TAZ 3.375G PREMIX 50 ML IV SCH ×3 (05:11→20:44)
[2019-03-26] MEDS: DOCUSATE SODIUM SUGAR FREE 100MG/10ML UDC NG SCH ×2 (08:33→08:53)
[2019-03-26] MEDS: FAMOTIDINE 20MG/2ML VIAL IV SCH (08:33)
[2019-03-26] MEDS: FERROUS SULFATE 300MG/5ML UDC PO SCH ×3 (08:33→17:29)
[2019-03-26] MEDS: HYDROMORPHONE HCL/PF 2MG/ML CPJ IV PRN ×4 (08:33→20:34)
[2019-03-26] MEDS: ENOXAPARIN 40MG/0.4ML SYR SUBCUT SCH ×2 (08:34→08:54)
[2019-03-26 11:38] LABS: BG BASE EXCESS 6.4 mmol/L (-2.0-2.0); BG CARBOXYHEMOGLOBIN 0.4 % (0.5-1.5); BG DEOXYHEMOGLOBIN 3.2 % (0.0-5.0); BG FRACTION INSPIRED OXYGEN 40; BG HCO3 ACT 31.7 mmol/L (22.0-26.0); BG METHEMOGLOBIN 0.3 % (0.0-1.5); BG OXYGEN SATURATION 96.8 % (92.0-98.5); BG OXYHEMOGLOBIN 96.1 % (94.0-97.0); BG PCO2 49.8 mmHg (35.0-45.0); BG PH 7.422 (7.350-7.450); BG PO2 88.1 mmHg (75.0-100.0); BG SAMPLE SITE RIGHT BRACHIAL; BG TOTAL HEMOGLOBIN 9.4 g/dL (12.0-18.0); BG VENT MODE T-TUBE
[2019-03-26] MEDS: OXYCODONE HCL 5MG TABLET PEG SCH ×2 (18:00→23:26)
[2019-03-26] MEDS ORDERED: OXYCODONE HCL 10MG TABLET SR 12HR PO SCH (21:00)
[2019-03-27] VITALS (16 sets, daily range): BP systolic 109–128; BP diastolic 64–91
[2019-03-27] MEDS: IPRATROPIUM/ALBUTEROL 0.5-3(2.5)MG/3ML NEB HHN SCH ×6 (00:22→20:25)
[2019-03-27] MEDS: HYDROMORPHONE HCL/PF 2MG/ML CPJ IV PRN ×4 (04:10→22:55)
[2019-03-27] MEDS: GABAPENTIN SOLN 50MG/1ML UDC GT SCH ×3 (05:17→22:05)
[2019-03-27] MEDS: PIPERACILLIN/TAZ 3.375G PREMIX 50 ML IV SCH ×3 (05:17→22:05)
[2019-03-27] MEDS: OXYCODONE HCL 5MG TABLET PEG SCH ×3 (05:17→18:27)
[2019-03-27] MEDS: FERROUS SULFATE 300MG/5ML UDC PO SCH ×3 (08:00→18:27)
[2019-03-27] MEDS: DOCUSATE SODIUM SUGAR FREE 100MG/10ML UDC NG SCH (09:00)
[2019-03-27] MEDS: ENOXAPARIN 40MG/0.4ML SYR SUBCUT SCH (09:00)
[2019-03-27] MEDS: FAMOTIDINE 20MG/2ML VIAL IV SCH (09:01)
[2019-03-27] MEDS: BUDESONIDE 0.5MG/2ML NEB HHN SCH ×2 (16:15→20:26)
[2019-03-28] VITALS (12 sets, daily range): BP systolic 96–139; BP diastolic 65–92
[2019-03-28] MEDS: OXYCODONE HCL 5MG TABLET PEG SCH ×4 (00:22→17:36)
[2019-03-28] MEDS: IPRATROPIUM/ALBUTEROL 0.5-3(2.5)MG/3ML NEB HHN SCH ×6 (00:22→20:09)
[2019-03-28] MEDS: HYDROMORPHONE HCL/PF 2MG/ML CPJ IV PRN ×5 (04:14→22:09)
[2019-03-28] MEDS: PIPERACILLIN/TAZ 3.375G PREMIX 50 ML IV SCH ×3 (05:24→22:07)
[2019-03-28 06:40] LABS: CHLORIDE 101 mEq/L (98-107)
[2019-03-28 06:53] LABS: HEMATOCRIT. 28.8 % (36.0-48.0); HEMOGLOBIN. 9.3 g/dL (12.0-16.0); MEAN CORPUSCULAR HEMOGLOBIN 27.9 pg (28.0-32.0); MEAN CORPUSCULAR VOLUME 86.6 fL (81.0-99.0); MEAN PLATELET VOLUME 9.7 fl (7.4-10.4); PLATELET 288 x1000/uL (130-400); RED BLOOD CELL COUNT 3.33 mill/uL (4.2-5.4); RED CELL DISTRIBUTION WIDTH 14.9 % (11.6-14.6)
[2019-03-28 07:16] LABS: INR 1.2
[2019-03-28] MEDS: GABAPENTIN SOLN 50MG/1ML UDC GT SCH ×3 (07:45→22:07)
[2019-03-28] MEDS: BUDESONIDE 0.5MG/2ML NEB HHN SCH ×2 (08:50→20:09)
[2019-03-28] MEDS: DOCUSATE SODIUM SUGAR FREE 100MG/10ML UDC NG SCH (09:00)
[2019-03-28] MEDS: ENOXAPARIN 40MG/0.4ML SYR SUBCUT SCH (09:00)
[2019-03-28] MEDS: FAMOTIDINE 20MG/2ML VIAL IV SCH (09:00)
[2019-03-28] MEDS: FERROUS SULFATE 300MG/5ML UDC PO SCH ×3 (09:00→17:38)
[2019-03-28 12:20] LABS: PLATELET ESTIMATE NORMAL
[2019-03-29] VITALS (10 sets, daily range): BP systolic 107–154; BP diastolic 67–92
[2019-03-29] MEDS: OXYCODONE HCL 5MG TABLET PEG SCH ×4 (00:18→18:31)
[2019-03-29] MEDS: IPRATROPIUM/ALBUTEROL 0.5-3(2.5)MG/3ML NEB HHN SCH ×6 (00:27→20:20)
[2019-03-29] MEDS: HYDROMORPHONE HCL/PF 2MG/ML CPJ IV PRN ×4 (02:43→22:20)
[2019-03-29] MEDS: GABAPENTIN SOLN 50MG/1ML UDC GT SCH ×3 (06:59→22:31)
[2019-03-29] MEDS: BUDESONIDE 0.5MG/2ML NEB HHN SCH (07:39)
[2019-03-29] MEDS: DOCUSATE SODIUM SUGAR FREE 100MG/10ML UDC NG SCH (09:00)
[2019-03-29] MEDS: FAMOTIDINE 20MG/2ML VIAL IV SCH (09:01)
[2019-03-29] MEDS: ENOXAPARIN 40MG/0.4ML SYR SUBCUT SCH (09:02)
[2019-03-29] MEDS: FERROUS SULFATE 300MG/5ML UDC PO SCH ×3 (09:03→18:32)
[2019-03-30] VITALS (10 sets, daily range): BP systolic 102–157; BP diastolic 35–85
[2019-03-30] MEDS: OXYCODONE HCL 5MG TABLET PEG SCH ×5 (00:21→17:44)
[2019-03-30] MEDS: IPRATROPIUM/ALBUTEROL 0.5-3(2.5)MG/3ML NEB HHN SCH ×6 (00:38→20:51)
[2019-03-30] MEDS: HYDROMORPHONE HCL/PF 2MG/ML CPJ IV PRN ×4 (03:51→21:22)
[2019-03-30] MEDS: GABAPENTIN SOLN 50MG/1ML UDC GT SCH ×3 (06:34→22:08)
[2019-03-30 06:45] LABS: GAMMA GLUTAMYL TRANSPEPTIDASE 60 IU/L (7-32)
[2019-03-30] MEDS: ENOXAPARIN 40MG/0.4ML SYR SUBCUT SCH (08:30)
[2019-03-30] MEDS: FAMOTIDINE 20MG/2ML VIAL IV SCH (08:30)
[2019-03-30] MEDS: FERROUS SULFATE 300MG/5ML UDC PO SCH ×3 (08:30→17:43)
[2019-03-30] MEDS: DOCUSATE SODIUM SUGAR FREE 100MG/10ML UDC NG SCH (08:31)
[2019-03-30] MEDS: BUDESONIDE 0.5MG/2ML NEB HHN SCH ×2 (08:39→20:51)
[2019-03-30 13:02] LABS: HEMATOCRIT. 27.2 % (36.0-48.0); HEMOGLOBIN. 8.7 g/dL (12.0-16.0); MEAN CORPUSCULAR HEMOGLOBIN 27.7 pg (28.0-32.0); MEAN CORPUSCULAR VOLUME 86.9 fL (81.0-99.0); MEAN PLATELET VOLUME 10.2 fl (7.4-10.4); PLATELET 240 x1000/uL (130-400); RED BLOOD CELL COUNT 3.13 mill/uL (4.2-5.4); RED CELL DISTRIBUTION WIDTH 15.5 % (11.6-14.6)
[2019-03-30 16:55] LABS: PLATELET ESTIMATE NORMAL
[2019-03-31] VITALS (11 sets, daily range): BP systolic 101–147; BP diastolic 60–93
[2019-03-31] MEDS: OXYCODONE HCL 5MG TABLET PEG SCH ×4 (00:16→18:39)
[2019-03-31] MEDS: IPRATROPIUM/ALBUTEROL 0.5-3(2.5)MG/3ML NEB HHN SCH ×6 (01:10→21:52)
[2019-03-31] MEDS: HYDROMORPHONE HCL/PF 2MG/ML CPJ IV PRN ×4 (04:37→23:52)
[2019-03-31] MEDS: GABAPENTIN SOLN 50MG/1ML UDC GT SCH ×3 (06:25→22:09)
[2019-03-31] MEDS: DOCUSATE SODIUM SUGAR FREE 100MG/10ML UDC NG SCH (09:00)
[2019-03-31] MEDS: FERROUS SULFATE 300MG/5ML UDC PO SCH ×3 (09:59→18:39)
[2019-03-31] MEDS: FAMOTIDINE 20MG/2ML VIAL IV SCH (09:59)
[2019-03-31] MEDS: ENOXAPARIN 40MG/0.4ML SYR SUBCUT SCH (10:00)
[2019-04-01] VITALS (12 sets, daily range): BP systolic 98–150; BP diastolic 67–96
[2019-04-01] MEDS: IPRATROPIUM/ALBUTEROL 0.5-3(2.5)MG/3ML NEB HHN SCH ×7 (00:55→23:46)
[2019-04-01] MEDS: ACETYLCYSTEINE 100MG/ML 10% VIAL 4ML INH SCH ×4 (00:56→23:46)
[2019-04-01] MEDS: HYDROMORPHONE HCL/PF 2MG/ML CPJ IV PRN ×5 (04:01→22:26)
[2019-04-01] MEDS: GABAPENTIN SOLN 50MG/1ML UDC GT SCH ×3 (05:15→21:40)
[2019-04-01] MEDS: ENOXAPARIN 40MG/0.4ML SYR SUBCUT SCH (09:01)
[2019-04-01] MEDS: FAMOTIDINE 20MG/2ML VIAL IV SCH (09:02)
[2019-04-01] MEDS: FERROUS SULFATE 300MG/5ML UDC PO SCH ×3 (09:02→17:59)
[2019-04-01] MEDS: DOCUSATE SODIUM SUGAR FREE 100MG/10ML UDC NG SCH (09:02)
[2019-04-01] MEDS: OXYCODONE HCL 5MG TABLET PO SCH (23:48)
[2019-04-02] VITALS (12 sets, daily range): BP systolic 109–134; BP diastolic 74–86
[2019-04-02] MEDS: HYDROMORPHONE HCL/PF 2MG/ML CPJ IV PRN ×4 (03:55→21:31)
[2019-04-02] MEDS: IPRATROPIUM/ALBUTEROL 0.5-3(2.5)MG/3ML NEB HHN SCH ×5 (04:21→20:17)
[2019-04-02] MEDS: OXYCODONE HCL 5MG TABLET PO SCH ×3 (05:43→17:36)
[2019-04-02] MEDS: GABAPENTIN SOLN 50MG/1ML UDC GT SCH ×3 (05:44→21:30)
[2019-04-02 07:40] LABS: HEMATOCRIT. 29.8 % (36.0-48.0); HEMOGLOBIN. 9.5 g/dL (12.0-16.0); MEAN CORPUSCULAR HEMOGLOBIN 27.8 pg (28.0-32.0); MEAN CORPUSCULAR VOLUME 87.6 fL (81.0-99.0); MEAN PLATELET VOLUME 10.6 fl (7.4-10.4); PLATELET 287 x1000/uL (130-400); RED BLOOD CELL COUNT 3.41 mill/uL (4.2-5.4); RED CELL DISTRIBUTION WIDTH 16.1 % (11.6-14.6)
[2019-04-02 07:41] LABS: CHLORIDE 101 mEq/L (98-107)
[2019-04-02 07:49] LABS: TOTAL IRON BINDING CAPACITY 199 ug/dL (250-450)
[2019-04-02] MEDS: ACETYLCYSTEINE 100MG/ML 10% VIAL 4ML INH SCH ×3 (08:20→21:29)
[2019-04-02] MEDS: DOCUSATE SODIUM SUGAR FREE 100MG/10ML UDC NG SCH (09:00)
[2019-04-02] MEDS: FERROUS SULFATE 300MG/5ML UDC PO SCH ×3 (09:24→17:36)
[2019-04-02] MEDS: ENOXAPARIN 40MG/0.4ML SYR SUBCUT SCH (09:24)
[2019-04-02] MEDS: FAMOTIDINE 20MG/2ML VIAL IV SCH (09:24)
[2019-04-02 09:59] LABS: PLATELET ESTIMATE NORMAL
[2019-04-02] MEDS ORDERED: LACTULOSE 20G/30ML UDC PO SCH (10:45)
[2019-04-03] VITALS (11 sets, daily range): BP systolic 105–181; BP diastolic 72–142
[2019-04-03] MEDS: ACETYLCYSTEINE 100MG/ML 10% VIAL 4ML INH SCH ×3 (00:12→15:10)
[2019-04-03] MEDS: IPRATROPIUM/ALBUTEROL 0.5-3(2.5)MG/3ML NEB HHN SCH ×6 (00:12→20:56)
[2019-04-03] MEDS: OXYCODONE HCL 5MG TABLET PO SCH ×5 (00:54→23:43)
[2019-04-03] MEDS: HYDROMORPHONE HCL/PF 2MG/ML CPJ IV PRN ×4 (04:06→20:19)
[2019-04-03] MEDS: GABAPENTIN SOLN 50MG/1ML UDC GT SCH ×3 (06:32→21:12)
[2019-04-03] MEDS: FAMOTIDINE 20MG/2ML VIAL IV SCH (08:37)
[2019-04-03] MEDS: ENOXAPARIN 40MG/0.4ML SYR SUBCUT SCH (08:37)
[2019-04-03] MEDS: FERROUS SULFATE 300MG/5ML UDC PO SCH ×3 (08:37→17:22)
[2019-04-03] MEDS: DOCUSATE SODIUM SUGAR FREE 100MG/10ML UDC NG SCH ×2 (08:37→08:51)
[2019-04-03] MEDS: ASCORBIC ACID 500 MG TABLET PO SCH (17:25)
[2019-04-04] VITALS (10 sets, daily range): BP systolic 104–144; BP diastolic 66–97
[2019-04-04] MEDS: ACETYLCYSTEINE 100MG/ML 10% VIAL 4ML INH SCH ×3 (00:09→15:55)
[2019-04-04] MEDS: IPRATROPIUM/ALBUTEROL 0.5-3(2.5)MG/3ML NEB HHN SCH ×6 (00:10→20:54)
[2019-04-04] MEDS: HYDROMORPHONE HCL/PF 2MG/ML CPJ IV PRN ×4 (02:37→21:16)
[2019-04-04] MEDS: OXYCODONE HCL 5MG TABLET PO SCH ×3 (05:58→17:45)
[2019-04-04] MEDS: GABAPENTIN SOLN 50MG/1ML UDC GT SCH ×3 (06:36→21:17)
[2019-04-04] MEDS: FERROUS SULFATE 300MG/5ML UDC PO SCH ×3 (08:27→17:43)
[2019-04-04] MEDS: ENOXAPARIN 40MG/0.4ML SYR SUBCUT SCH (08:27)
[2019-04-04] MEDS: FAMOTIDINE 20MG/2ML VIAL IV SCH (08:27)
[2019-04-04] MEDS: DOCUSATE SODIUM SUGAR FREE 100MG/10ML UDC NG SCH (08:36)
[2019-04-04] MEDS: ASCORBIC ACID 500 MG TABLET PO SCH ×2 (08:37→17:44)
[2019-04-04] MEDS: LACTULOSE 20G/30ML UDC PO SCH (11:25)
[2019-04-04] MEDS: ONDANSETRON HCL 4MG/2ML INJ IV PRN (21:15)
[2019-04-05] VITALS (11 sets, daily range): BP systolic 108–136; BP diastolic 67–98
[2019-04-05] MEDS: IPRATROPIUM/ALBUTEROL 0.5-3(2.5)MG/3ML NEB HHN SCH ×6 (00:06→20:15)
[2019-04-05] MEDS: ACETYLCYSTEINE 100MG/ML 10% VIAL 4ML INH SCH ×3 (00:06→15:24)
[2019-04-05] MEDS: HYDROMORPHONE HCL/PF 2MG/ML CPJ IV PRN ×4 (01:52→21:02)
[2019-04-05] MEDS: ONDANSETRON HCL 4MG/2ML INJ IV PRN ×2 (06:12→23:46)
[2019-04-05] MEDS: GABAPENTIN SOLN 50MG/1ML UDC GT SCH ×3 (06:13→21:01)
[2019-04-05] MEDS: OXYCODONE HCL 5MG TABLET PO SCH ×5 (06:31→23:47)
[2019-04-05 08:35] LABS: HEMATOCRIT. 26.3 % (36.0-48.0); HEMOGLOBIN. 8.5 g/dL (12.0-16.0); MEAN CORPUSCULAR HEMOGLOBIN 28.2 pg (28.0-32.0); MEAN CORPUSCULAR VOLUME 86.9 fL (81.0-99.0); MEAN PLATELET VOLUME 10.2 fl (7.4-10.4); PLATELET 252 x1000/uL (130-400); RED BLOOD CELL COUNT 3.03 mill/uL (4.2-5.4); RED CELL DISTRIBUTION WIDTH 16.1 % (11.6-14.6)
[2019-04-05] MEDS: FAMOTIDINE 20MG/2ML VIAL IV SCH (08:49)
[2019-04-05] MEDS: LACTULOSE 20G/30ML UDC PO SCH (08:49)
[2019-04-05] MEDS: FERROUS SULFATE 300MG/5ML UDC PO SCH ×3 (08:49→17:30)
[2019-04-05] MEDS: ENOXAPARIN 40MG/0.4ML SYR SUBCUT SCH (08:50)
[2019-04-05] MEDS: ASCORBIC ACID 500 MG TABLET PO SCH ×2 (08:50→17:30)
[2019-04-05] MEDS: DOCUSATE SODIUM SUGAR FREE 100MG/10ML UDC NG SCH (08:51)
[2019-04-05 09:14] LABS: CHLORIDE 96 mEq/L (98-107)
[2019-04-05 13:45] LABS: PLATELET ESTIMATE NORMAL
[2019-04-06] VITALS (12 sets, daily range): BP systolic 101–163; BP diastolic 65–100
[2019-04-06] MEDS: ACETYLCYSTEINE 100MG/ML 10% VIAL 4ML INH SCH (00:52)
[2019-04-06] MEDS: IPRATROPIUM/ALBUTEROL 0.5-3(2.5)MG/3ML NEB HHN SCH ×6 (00:52→20:23)
[2019-04-06] MEDS: HYDROMORPHONE HCL/PF 2MG/ML CPJ IV PRN ×4 (02:23→20:30)
[2019-04-06] MEDS: GABAPENTIN SOLN 50MG/1ML UDC GT SCH ×3 (05:51→21:47)
[2019-04-06] MEDS: OXYCODONE HCL 5MG TABLET PO SCH ×3 (05:52→17:30)
[2019-04-06 07:45] LABS: HEMATOCRIT. 28.3 % (36.0-48.0); MEAN CORPUSCULAR HEMOGLOBIN 27.9 pg (28.0-32.0); MEAN PLATELET VOLUME 10.5 fl (7.4-10.4); PLATELET 265 x1000/uL (130-400); RED BLOOD CELL COUNT 3.21 mill/uL (4.2-5.4); RED CELL DISTRIBUTION WIDTH 16.5 % (11.6-14.6)
[2019-04-06 08:16] LABS: CHLORIDE 97 mEq/L (98-107)
[2019-04-06] MEDS: FAMOTIDINE 20MG/2ML VIAL IV SCH (08:37)
[2019-04-06] MEDS: FERROUS SULFATE 300MG/5ML UDC PO SCH ×3 (08:37→17:18)
[2019-04-06] MEDS: LACTULOSE 20G/30ML UDC PO SCH (08:37)
[2019-04-06] MEDS: ENOXAPARIN 40MG/0.4ML SYR SUBCUT SCH (08:37)
[2019-04-06] MEDS: ASCORBIC ACID 500 MG TABLET PO SCH ×2 (08:37→17:18)
[2019-04-06] MEDS: DOCUSATE SODIUM SUGAR FREE 100MG/10ML UDC NG SCH (08:38)
[2019-04-06 09:24] LABS: PLATELET ESTIMATE NORMAL
[2019-04-07] VITALS (14 sets, daily range): BP systolic 120–173; BP diastolic 60–96
[2019-04-07] MEDS: OXYCODONE HCL 5MG TABLET PO SCH (00:15)
[2019-04-07] MEDS: IPRATROPIUM/ALBUTEROL 0.5-3(2.5)MG/3ML NEB HHN SCH ×6 (00:16→21:02)
[2019-04-07] MEDS: HYDROMORPHONE HCL/PF 2MG/ML CPJ IV PRN ×4 (02:24→21:00)
[2019-04-07] MEDS: GABAPENTIN SOLN 50MG/1ML UDC GT SCH ×3 (05:36→21:39)
[2019-04-07] MEDS: FAMOTIDINE 20MG/2ML VIAL IV SCH (08:14)
[2019-04-07] MEDS: ASCORBIC ACID 500 MG TABLET PO SCH ×2 (08:14→16:51)
[2019-04-07] MEDS: FERROUS SULFATE 300MG/5ML UDC PO SCH ×3 (08:14→17:01)
[2019-04-07] MEDS: ENOXAPARIN 40MG/0.4ML SYR SUBCUT SCH (08:16)
[2019-04-07] MEDS: DOCUSATE SODIUM SUGAR FREE 100MG/10ML UDC NG SCH (08:17)
[2019-04-07] MEDS: LACTULOSE 20G/30ML UDC PO SCH (08:17)
[2019-04-07] MEDS ORDERED: LACTULOSE 20G/30ML UDC PO PRN (12:00)
[2019-04-07] MEDS ORDERED: OXYCODONE HCL 5MG TABLET PO PRN (13:15)
[2019-04-07] MEDS: OXYCODONE HCL 5MG TABLET PO PRN ×2 (15:26→23:35)
[2019-04-08] VITALS (13 sets, daily range): BP systolic 91–148; BP diastolic 57–99
[2019-04-08] MEDS: IPRATROPIUM/ALBUTEROL 0.5-3(2.5)MG/3ML NEB HHN SCH ×6 (00:46→20:45)
[2019-04-08] MEDS: HYDROMORPHONE HCL/PF 2MG/ML CPJ IV PRN ×4 (05:34→23:44)
[2019-04-08] MEDS: GABAPENTIN SOLN 50MG/1ML UDC GT SCH ×3 (06:57→23:42)
[2019-04-08] MEDS: ENOXAPARIN 40MG/0.4ML SYR SUBCUT SCH (08:33)
[2019-04-08] MEDS: FERROUS SULFATE 300MG/5ML UDC PO SCH ×3 (08:34→17:21)
[2019-04-08] MEDS: FAMOTIDINE 20MG/2ML VIAL IV SCH (08:34)
[2019-04-08] MEDS: ASCORBIC ACID 500 MG TABLET PO SCH ×2 (08:35→17:18)
[2019-04-08] MEDS: OXYCODONE HCL 5MG TABLET PO PRN ×2 (08:36→17:20)
[2019-04-08] MEDS: DOCUSATE SODIUM SUGAR FREE 100MG/10ML UDC NG SCH (09:00)
[2019-04-08] MEDS: FAMOTIDINE 20MG TABLET PO SCH (12:39)
[2019-04-08] MEDS ORDERED: FAMOTIDINE 20MG TABLET PO SCH (21:00)
[2019-04-09] MEDS: IPRATROPIUM/ALBUTEROL 0.5-3(2.5)MG/3ML NEB HHN SCH ×4 (00:03→12:36)
[2019-04-09] MEDS: OXYCODONE HCL 5MG TABLET PO PRN ×3 (00:22→13:21)
[2019-04-09] MEDS: HYDROMORPHONE HCL/PF 2MG/ML CPJ IV PRN (03:06)
[2019-04-09] MEDS: GABAPENTIN SOLN 50MG/1ML UDC GT SCH ×2 (06:51→13:25)
[2019-04-09] MEDS: DOCUSATE SODIUM SUGAR FREE 100MG/10ML UDC NG SCH (09:00)
[2019-04-09] MEDS: FERROUS SULFATE 300MG/5ML UDC PO SCH ×2 (10:06→13:15)
[2019-04-09] MEDS: ENOXAPARIN 40MG/0.4ML SYR SUBCUT SCH (10:06)
[2019-04-09] MEDS: ASCORBIC ACID 500 MG TABLET PO SCH (10:07)
[2019-04-09] MEDS: FAMOTIDINE 20MG TABLET PO SCH (10:07)
[2019-04-09 13:21] VITALS: BP 129/90
== END 2019-04-09 15:08 | DRG 720 ==
LOC: ER 15:53 → 5EST 19:11 → EDBEDREQTM 19:31 → EDBEDREQ 19:31 → ENRESERV 20:20 → SUPCPDRO 22:06
PROVIDERS: ADMIT Hospitalist; ATTEND Hospitalist
PROC: 5A1955Z Respiratory Ventilation, Greater than 96 Consecutive Hours (ICD-10-PCS; principal; 2019-03-20)
DX: A41.52 Sepsis due to Pseudomonas (principal); J96.21 Acute and chronic respiratory failure with hypoxia; E43 Unspecified severe protein-calorie malnutrition; Z99.11 Dependence on respirator [ventilator] status; J43.9 Emphysema, unspecified; J91.8 Pleural effusion in other conditions classified elsewhere; E87.2 Acidosis; Z93.0 Tracheostomy status; R13.10 Dysphagia, unspecified; J96.22 Acute and chronic respiratory failure with hypercapnia; E87.5 Hyperkalemia; B02.29 Other postherpetic nervous system involvement; N39.0 Urinary tract infection, site not specified; K74.60 Unspecified cirrhosis of liver; D63.8 Anemia in other chronic diseases classified elsewhere; B19.20 Unspecified viral hepatitis C without hepatic coma; B96.5 Pseudomonas (aeruginosa) (mallei) (pseudomallei) as the cause of diseases classified elsewhere; E87.6 Hypokalemia; I12.9 Hypertensive chronic kidney disease with stage 1 through stage 4 chronic kidney disease, or unspecified chronic kidney disease; I25.10 Atherosclerotic heart disease of native coronary artery without angina pectoris; K21.9 Gastro-esophageal reflux disease without esophagitis; N18.9 Chronic kidney disease, unspecified; Z66 Do not resuscitate; Z51.5 Encounter for palliative care; N28.89 Other specified disorders of kidney and ureter; Z87.891 Personal history of nicotine dependence; Z93.1 Gastrostomy status; Z99.81 Dependence on supplemental oxygen; Z68.1 Body mass index [BMI] 19.9 or less, adult; Z79.899 Other long term (current) drug therapy; Z79.82 Long term (current) use of aspirin
CPT/HCPCS: 36415; 36600; 71045; 71250; 76700; 80048; 80061; 80076; 80202; 82140; 82375; 82728; 82805; 82977; 83540; 83550; 83605; 83615; 83735; 84145; 84484; 87077; 87186; 92523; 92610; 93005; 93970; 94002; 94003; 94640; 96374; 97110; 97116; 97162; 97166; 97530; 97535; 99285; A6261; C1893; J1170; J1650; J2270; J2405; J2543; J3370; J3490; J7030; J7050; J7608; J7620; J7626